=== PATIENT | female | born 1985 | race Caucasian/White ===

== ENCOUNTER 2023-07-30 19:45 | Emergency (ER) | payer OTHER, MEDICAID, SELFPAY ==
[2023-07-30 19:49] VITALS: BP 150/88; PULSE 88; RESP 18; TEMP 36.8; O2SAT 98; BMI 33.7
--- NOTE | 2023-07-30 20:07 | ED_ITS ---
Documented by User: MONTSE Valdovinos 07/30/23 20:59 HPI - General Adult General Chief complaint: Neuro Symptoms/Deficit Stated complaint: ARM SWELLING Time Seen by Provider: 07/30/23 19:58 Source: patient Mode of arrival: walk-in History of Present Illness HPI narrative: patient is a 38-year-old female who presents to the emergency department for the evaluation of multiple complaints. Patient states she is primarily concerned about swelling in her left forearm. She was seen at urgent care for this earlier this morning and started on prednisone, she has taken one dose. She states she had a sleep paralysis stream last night and feels as though she was straining her eyes to try to wake herself up, she states she had some blurriness in the periphery of her vision after this sleep paralysis stream. She states on waking this afternoon the visual changes have resolved. She has not had any headaches, loss of vision, fevers, cough, congestion. She states she took her blood pressure at [facility] earlier today and after the blood pressure cuff was on her left forearm, she has noticed itching, burning and swelling of the left forearm. She does have a history of forearm fracture with surgical repair many years ago. She denies any falls, injuries or overuse of the left forearm. She is not concerned for . Related Data Home Medications Medication Instructions Recorded Confirmed atenolol 100 mg tablet mg 07/30/23 buprenorphine 100 mg/0.5 mL mg subcut 07/30/23 solution,exten.rel.subcutaneous syringe (Sublocade) prednisone 50 mg tablet mg 07/30/23 valacyclovir 500 mg tablet 500 mg PO DAILY 07/30/23 07/30/23 (Valtrex) venlafaxine 150 mg mg PO 07/30/23 capsule,extended release 24 hr Allergies Allergy/AdvReac Type Severity Reaction Status Date / Time No Known Drug Allergies Allergy Verified 07/30/23 19:55 Review of Systems ROS Constitutional Denies: fever or chills Ears, nose, mouth, and throat Denies: throat pain or neck pain Cardiovascular Denies: chest pain Respiratory Denies: shortness of breath or cough Gastrointestinal Denies: nausea or vomiting Musculoskeletal Reports: extremity pain and extremity swelling; Denies: back pain or neck pain Integumentary/Breast Reports: itching; Denies: rash Neurological Denies: headache Hematologic/Lymphatic Denies: easy bruising PFSH PFSH Social History Smoking status: Current every day smoker Exam Narrative Exam Narrative: Gen.: Awake, alert, in no distress Head: Normocephalic, atraumatic ENT: Moist mucous membranes Respiratory: No respiratory distress Extremities: Moves extremities equally, no injuries noted; left forearm with mild soft tissue swelling noted on the volar aspect of the left forearm at the distal aspect of the well-healed surgical incision. No erythema, induration or open wounds. No red streaking. Psych: Normal mood and affect Neuro: No focal neuro deficit, clear speech Skin: Warm, dry, intact Constitutional Vital Signs, click to edit/add: Last Vital Signs Temp 98.2 F 07/30/23 19:49 Pulse 72 07/30/23 21:38 Resp 18 07/30/23 21:38 BP 134/93 H 07/30/23 21:38 Pulse Ox 94 L 07/30/23 21:38 O2 Del Method Room Air 07/30/23 19:49 Course Vital Signs Vital signs: Vital Signs Temperature 98.2 F 07/30/23 19:49 Pulse Rate 88 07/30/23 19:49 Respiratory Rate 18 07/30/23 19:49 Blood Pressure 150/88 H 07/30/23 19:49 Pulse Oximetry 98 07/30/23 19:49 Oxygen Delivery Method Room Air 07/30/23 19:49 Temperature 98.2 F 07/30/23 19:49 Pulse Rate 72 07/30/23 21:38 Respiratory Rate 18 07/30/23 21:38 Blood Pressure 134/93 H 07/30/23 21:38 Pulse Oximetry 94 L 07/30/23 21:38 Oxygen Delivery Method Room Air 07/30/23 19:49 Medical Decision Making MDM Narrative Medical decision making narrative: 2100: lab studies, ultrasound of the left upper extremity and CT of the brain were ordered for the patient. Vital signs are stable at this time. Case is turned over to attending physician for results and disposition. Medical Records Medical records reviewed: Yes I reviewed the patient's medical records Lab Data Lab results reviewed: Yes I reviewed the patient's lab results Labs: Lab Results 07/30/23 Range/Units 20:15 WBC 6.0 (4.0-11.0) 10^3/uL RBC 4.82 (4.20-5.40) 10^6/uL Hgb 13.0 (12.0-16.0) g/dL Hct 39.4 (36.0-48.0) % MCV 81.7 (81.0-99.0) fL MCH 27.0 (26.7-34.0) pg MCHC 33.0 (29.9-35.2) g/dL RDW 13.2 (11.0-15.0) % Plt Count 260 (150-450) 10^3/uL MPV 10.0 (9.5-13.5) fL Neut % (Auto) 88.2 H (43.0-75.0) % Lymph % (Auto) 9.5 L (20.5-60.0) % [place] % (Auto) 1.2 L (1.7-12.0) % Eos % (Auto) 0.3 L (0.9-7.0) % Baso % (Auto) 0.3 (0.2-2.0) % Neut # (Auto) 5.3 (1.4-6.5) 10^3/uL Lymph # (Auto) 0.6 L (1.2-3.8) 10^3/uL [place] # (Auto) 0.1 L (0.3-0.8) 10^3/uL Eos # (Auto) 0.0 (0.0-0.7) 10^3/uL Baso # (Auto) 0.0 (0.0-0.1) 10^3/uL Abs Immat Gran (auto) 0.03 (0.00-0.03) 10^3/uL Imm/Tot Granulo (auto) 0.5 (0.0-0.5) % ESR 34 H (<=20) mm/hr Sodium 141 (136-145) mmol/L Potassium 4.3 (3.5-5.1) mmol/L Chloride 105 (98-107) mmol/L Carbon Dioxide 26.5 (21.0-32.0) mmol/L Anion Gap 13.8 BUN 12.0 (7.0-18.0) mg/dL Creatinine 0.77 (0.55-1.02) mg/dL Est GFR ( Amer) >60 (>=60) Est GFR (Non-Af Amer) >60 (>=60) BUN/Creatinine Ratio 15.6 Glucose 171 H (74-106) mg/dL Calcium 8.5 (8.5-10.1) mg/dL C-Reactive Protein <1.0 (<=1.0) mg/dL Discharge Plan Discharge Chief Complaint: Neuro Symptoms/Deficit Clinical Impression: Localized swelling of left forearm, Visual disturbance Patient Disposition: Home, Self-Care Time of Disposition Decision: 21:56 Condition: Good Mode of Transportation: Private Vehicle Prescriptions / Home Meds: No Action atenolol 100 mg tablet venlafaxine 150 mg capsule,extended release 24hr PO prednisone 50 mg tablet Sublocade 100 mg/0.5 mL solution, extended rel syringe SUBCUT valacyclovir [Valtrex] 500 mg tablet 500 mg PO DAILY Instructions: Blurred Vision (ED), Swollen Joint (ED) Stand Alone Forms: Portal Instructions Referrals: Navjot Stewart DO [Primary Care Provider] - 1 week Documented by User: Chelsea Reyes MD 07/30/23 22:00 HPI - General Adult General Chief complaint: Neuro Symptoms/Deficit Stated complaint: ARM SWELLING Time Seen by Provider: 07/30/23 19:58 Related Data Home Medications Medication Instructions Recorded Confirmed atenolol 100 mg tablet mg 07/30/23 buprenorphine 100 mg/0.5 mL mg subcut 07/30/23 solution,exten.rel.subcutaneous syringe (Sublocade) prednisone 50 mg tablet mg 07/30/23 valacyclovir 500 mg tablet 500 mg PO DAILY 07/30/23 07/30/23 (Valtrex) venlafaxine 150 mg mg PO 07/30/23 capsule,extended release 24 hr Allergies Allergy/AdvReac Type Severity Reaction Status Date / Time No Known Drug Allergies Allergy Verified 07/30/23 19:55 PFSH PFSH Social History Smoking status: Current every day smoker Exam Constitutional Vital Signs, click to edit/add: Last Vital Signs Temp 98.2 F 07/30/23 19:49 Pulse 72 07/30/23 21:38 Resp 18 07/30/23 21:38 BP 134/93 H 07/30/23 21:38 Pulse Ox 94 L 07/30/23 21:38 O2 Del Method Room Air 07/30/23 19:49 Course Vital Signs Vital signs: Vital Signs Temperature 98.2 F 07/30/23 19:49 Pulse Rate 88 07/30/23 19:49 Respiratory Rate 18 07/30/23 19:49 Blood Pressure 150/88 H 07/30/23 19:49 Pulse Oximetry 98 07/30/23 19:49 Oxygen Delivery Method Room Air 07/30/23 19:49 Temperature 98.2 F 07/30/23 19:49 Pulse Rate 72 07/30/23 21:38 Respiratory Rate 18 07/30/23 21:38 Blood Pressure 134/93 H 07/30/23 21:38 Pulse Oximetry 94 L 07/30/23 21:38 Oxygen Delivery Method Room Air 07/30/23 19:49 Medical Decision Making MDM Narrative Medical decision making narrative: 2100: lab studies, ultrasound of the left upper extremity and CT of the brain were ordered for the patient. Vital signs are stable at this time. Case is turned over to attending physician for results and disposition. This patient was seen and evaluated in conjunction with the physician recreational assistant. She presents for evaluation of left forearm swelling and visual disturbance that occurred after having a dream. Her neuro exam is normal. She does have some mild left forearm swelling. She states that 20 years ago she had surgery on the left forearm after having a bad fracture. She also required a skin graft. Her neurovascular exam is normal. Ultrasound of the extremity was negative. CT scan of the brain was also normal. Routine labs are reviewed. She has an elevated glucose at 171 and a mild elevation of her ESR at 38. Remainder of her labs are normal. She is not having any pain at this time. I offered her a wrist splint but she states that she has a splint at home and wishes to be discharged at this time since she can go to work. Medical Records Medical records narrative: The [address] [address] [address] Scan Report Signed Patient: KALEB MCCAULEY MR#: [id number] : 1985 Acct:[id number] Age/Sex: 38 / F ADM Date: 07/30/23 Loc: ER Attending Dr: Ordering Physician: Jason Smith Date of Service: 07/30/23 Procedure(s): CT head/brain wo con Accession Number(s): [id number] cc: Navjot Stewart D.O.~ The [place] [id number] Patient Name: KALEB MCCAULEY MRN: [id number] date: 1985 Sex: F Assigned Patient Location: ER Current Patient Location: ER Accession/Order Number: [id number] Exam Date: 07/30/2023 21:08 Report Date: 07/30/2023 21:27 At the request of: JASON SMITH Procedure: CT head/brain wo con EXAMINATION: CT head/brain wo con HISTORY: Visual change - TECHNIQUE: CT head without contrast. All CT scans at this facility use dose modulation, iterative reconstruction, and/or weight based dosing when appropriate to reduce radiation dose to as low as reasonably achievable. COMPARISON: None. RESULT: Post-operative change: None. Acute change: No evidence of an acute intracranial process. Hemorrhage: No evidence of acute intracranial hemorrhage. Mass Lesion / Mass Effect: No evidence of an intracranial mass or extraaxial fluid collection. No significant mass effect. Chronic change: None apparent. Parenchyma: No significant parenchymal volume loss. Ventricles: Normal caliber and morphology. Other: The calvarium, skull base, imaged paranasal sinuses, mastoids, orbits and extracranial soft tissues are unremarkable. CT/CT head/brain wo con IMPRESSION: 1. No acute intracranial abnormality; no acute infarct, intracranial hemorrhage or extra-[place] [address] Ultrasound Report Signed Patient: KALEB MCCAULEY MR#: [id number] : 1985 Acct:[id number] Age/Sex: 38 / F ADM Date: 07/30/23 Loc: ER Attending Dr: Ordering Physician: Jason Smith Date of Service: 07/30/23 Procedure(s): US venous doppler UE LT Accession Number(s): [id number] cc: Navjot Stewart D.O.; Jason Smith~ The [address] [address] Patient Name: KALEB MCCAULEY MRN: [id number] date: 1985 Sex: F Assigned Patient Location: ER Current Patient Location: ER Accession/Order Number: [id number] Exam Date: 07/30/2023 20:28 Report Date: 07/30/2023 21:20 At the request of: JASON SMITH Procedure: US venous doppler UE LT EXAM: Upper Extremity DVT Ultrasound TECHNIQUE: Color doppler and menezes-scale imaging of the left upper extremities was performed. COMPARISON: None. FINDINGS: Normal flow without evidence of intraluminal echogenic thrombus in the left internal jugular vein, subclavian vein, axillary vein, and brachial vein. Normal compressibility where anatomically accessible. Normal flow and compressibility of the radial, ulnar, cephalic veins. Other: In the region of interest corresponding to the distal forearm there are no discrete sonographic abnormalities with exception of mild subcutaneous edema. US/US venous doppler UE LT IMPRESSION: No DVT in the left extremity to the level of the wrist. Subcutaneous edema seen at the distal forearm/wrist in the area of concern. Electronically authenticated by: MARCIAL SALES Date: 07/30/2023 21:20 Lab Data Labs: Lab Results 07/30/23 Range/Units 20:15 WBC 6.0 (4.0-11.0) 10^3/uL RBC 4.82 (4.20-5.40) 10^6/uL Hgb 13.0 (12.0-16.0) g/dL Hct 39.4 (36.0-48.0) % MCV 81.7 (81.0-99.0) fL MCH 27.0 (26.7-34.0) pg MCHC 33.0 (29.9-35.2) g/dL RDW 13.2 (11.0-15.0) % Plt Count 260 (150-450) 10^3/uL MPV 10.0 (9.5-13.5) fL Neut % (Auto) 88.2 H (43.0-75.0) % Lymph % (Auto) 9.5 L (20.5-60.0) % [place] % (Auto) 1.2 L (1.7-12.0) % Eos % (Auto) 0.3 L (0.9-7.0) % Baso % (Auto) 0.3 (0.2-2.0) % Neut # (Auto) 5.3 (1.4-6.5) 10^3/uL Lymph # (Auto) 0.6 L (1.2-3.8) 10^3/uL [place] # (Auto) 0.1 L (0.3-0.8) 10^3/uL Eos # (Auto) 0.0 (0.0-0.7) 10^3/uL Baso # (Auto) 0.0 (0.0-0.1) 10^3/uL Abs Immat Gran (auto) 0.03 (0.00-0.03) 10^3/uL Imm/Tot Granulo (auto) 0.5 (0.0-0.5) % ESR 34 H (<=20) mm/hr Sodium 141 (136-145) mmol/L Potassium 4.3 (3.5-5.1) mmol/L Chloride 105 (98-107) mmol/L Carbon Dioxide 26.5 (21.0-32.0) mmol/L Anion Gap 13.8 BUN 12.0 (7.0-18.0) mg/dL Creatinine 0.77 (0.55-1.02) mg/dL Est GFR ( Amer) >60 (>=60) Est GFR (Non-Af Amer) >60 (>=60) BUN/Creatinine Ratio 15.6 Glucose 171 H (74-106) mg/dL Calcium 8.5 (8.5-10.1) mg/dL C-Reactive Protein <1.0 (<=1.0) mg/dL Discharge Plan Discharge Chief Complaint: Neuro Symptoms/Deficit Clinical Impression: Localized swelling of left forearm, Visual disturbance Patient Disposition: Home, Self-Care Time of Disposition Decision: 21:56 Condition: Good Mode of Transportation: Private Vehicle Prescriptions / Home Meds: No Action atenolol 100 mg tablet venlafaxine 150 mg capsule,extended release 24hr PO prednisone 50 mg tablet Sublocade 100 mg/0.5 mL solution, extended rel syringe SUBCUT valacyclovir [Valtrex] 500 mg tablet 500 mg PO DAILY Instructions: Blurred Vision (ED), Swollen Joint (ED) Stand Alone Forms: Portal Instructions Referrals: Navjot Stewart DO [Primary Care Provider] - 1 week
[2023-07-30 20:23] LABS: Basophils Percent Auto 0.3 % (0.2-2.0); Eosinophils Percent Auto 0.3 % (0.9-7.0); Hematocrit 39.4 % (36.0-48.0); Immature Granulocytes Abs Auto 0.03 10^3/uL (0.00-0.03); Immature Granulocytes Pct Auto 0.5 % (0.0-0.5); Lymphocytes Absolute Auto 0.6 10^3/uL (1.2-3.8); Lymphocytes Percent Auto 9.5 % (20.5-60.0); Mean Corpuscular Volume 81.7 fL (81.0-99.0); Monocytes Absolute Auto 0.1 10^3/uL (0.3-0.8); Monocytes Percent Auto 1.2 % (1.7-12.0); Neutrophils Absolute Auto 5.3 10^3/uL (1.4-6.5); Neutrophils Percent Auto 88.2 % (43.0-75.0); Platelet Count 260 10^3/uL (150-450); Red Blood Count 4.82 10^6/uL (4.20-5.40); Red Cell Distribution Width 13.2 % (11.0-15.0)
[2023-07-30 20:30] LABS: Erythrocyte Sedimentation Rate 34 mm/hr (<=20)
[2023-07-30 20:33] LABS: Anion Gap 13.8; BUN Creatinine Ratio 15.6; C Reactive Protein <1.0 mg/dL (<=1.0); Calcium 8.5 mg/dL (8.5-10.1); Carbon Dioxide 26.5 mmol/L (21.0-32.0); Chloride 105 mmol/L (98-107); Estimated GFR (African America >60 (>=60); Estimated GFR (Non-African Ame >60 (>=60); Glucose 171 mg/dL (74-106); Potassium 4.3 mmol/L (3.5-5.1); Sodium 141 mmol/L (136-145)
[2023-07-30 21:38] VITALS: BP 134/93; PULSE 72; RESP 18; O2SAT 94
== END 2023-07-30 22:04 | disposition home or self-care (01) ==
PROVIDERS: Physician Assistant; Emergency Provider Emergency Medicine; PCP Internal Medicine
DX: R22.32 Localized swelling, mass and lump, left upper limb (principal); H53.9 Unspecified visual disturbance; Z87.81 Personal history of (healed) traumatic fracture; Z79.899 Other long term (current) drug therapy; F17.210 Nicotine dependence, cigarettes, uncomplicated
CPT/HCPCS: 36415; 70450; 80048; 85025; 85652; 86140; 93971; 99285

== ENCOUNTER 2024-04-20 08:54 | Outpatient (OUT) | payer OTHER, SELFPAY ==
--- NOTE | 2024-04-20 08:55 | US_ITS ---
[address] [address] Patient Name: KALEB MCCAULEY MRN: [id number] date: 1985 Sex: F Assigned Patient Location: Current Patient Location: Accession/Order Number: [id number] Exam Date: 04/20/2024 09:00 Report Date: 04/21/2024 10:57 At the request of: GERMAN MONTEMAYOR Procedure: US pelvis transvaginal EXAMINATION: US pelvis transvaginal HISTORY: Menorrhagia COMPARISON: No relevant comparison available. TECHNIQUE: Transabdominal and/or transvaginal sonographic examination was performed as indicated by examination type. FINDINGS: UTERUS: Normal size and appearance. Uterus size: 8.9 x 5.6 x 4.0 cm ENDOMETRIUM: Normal homogeneous appearance. Endometrial thickness: 12 mm RIGHT OVARY: Not seen. No suspicious adnexal findings. LEFT OVARY: Contains a 3.5 cm benign-appearing cyst. Duplex Doppler demonstrates normal waveform and flow; resistive index 0.5. Ovary size: 4.1 x 3.9 x 2.8 mm CUL-DE-SAC: Unremarkable. No significant free fluid. BLADDER: Unremarkable. OTHER: None. US/US pelvis transvaginal IMPRESSION: 1. No abnormal or suspicious findings to account for patient's symptoms. 2. Right ovary was not seen. Electronically authenticated by: JOSE AGOSTO Date: 04/21/2024 10:57
[2024-04-20 09:33] LABS: Basophils Percent Auto 0.6 % (0.2-2.0); Eosinophils Absolute Auto 0.5 10^3/uL (0.0-0.7); Eosinophils Percent Auto 7.8 % (0.9-7.0); Hematocrit 33.4 % (36.0-48.0); Hemoglobin 10.7 g/dL (12.0-16.0); Immature Granulocytes Abs Auto 0.03 10^3/uL (0.00-0.03); Immature Granulocytes Pct Auto 0.5 % (0.0-0.5); Lymphocytes Absolute Auto 1.5 10^3/uL (1.2-3.8); Lymphocytes Percent Auto 23.2 % (20.5-60.0); Mean Corpuscular Hemoglobin 25.3 pg (26.7-34.0); Mean Platelet Volume 9.5 fL (9.5-13.5); Monocytes Absolute Auto 0.5 10^3/uL (0.3-0.8); Monocytes Percent Auto 7.5 % (1.7-12.0); Neutrophils Absolute Auto 3.9 10^3/uL (1.4-6.5); Neutrophils Percent Auto 60.4 % (43.0-75.0); Platelet Count 248 10^3/uL (150-450); Red Blood Count 4.23 10^6/uL (4.20-5.40); Red Cell Distribution Width 13.2 % (11.0-15.0); White Blood Count 6.4 10^3/uL (4.0-11.0)
[2024-04-20 09:44] LABS: Estimated Average Glucose 117 mg/dL; Glycohemoglobin A1C 5.7 % (4.5-6.2)
[2024-04-20 09:55] LABS: INR 0.95; Partial Thromboplastin Time 28.5 sec (22.3-36.2); Prothrombin Time 10.1 sec (9.0-11.6)
[2024-04-20 10:24] LABS: HCG Quantitative <1 mIU/mL; Thyroid Stimulating Hormone 1.302 uIU/mL (0.358-3.740)
[2024-04-20 11:37] LABS: Free T4 0.91 ng/dL (0.76-1.46)
== END 2024-04-20 08:55 | disposition home or self-care (01) ==
LOC: US 08:54
PROVIDERS: PCP Internal Medicine; Visit Provider Obstetrics & Gynecology
DX: N92.0 Excessive and frequent menstruation with regular cycle (principal)
CPT/HCPCS: 36415; 76830; 83036; 84439; 84443; 84702; 85025; 85610; 85730

== ENCOUNTER 2024-06-09 12:28 | Outpatient (REF) | payer OTHER, SELFPAY ==
--- OUTSIDE RECORDS SUMMARY | 2024-06-09 20:35 | XMS_ITS | CCD ---
Author Organization [facility] Care Team Providers Care Photovoltaic Panel Installer Name Role Phone ARACELI HALL Unavailable Unavailable HAY, MAHESH Unavailable Unavailable HAY, MAHESH Unavailable Unavailable HAY, MAHESH Unavailable Unavailable LAURA, BERTHA L Unavailable Unavailable LAURA, BERTHA L Unavailable Unavailable ALBINA, GERMAN Unavailable Unavailable ALBINA, GERMAN Unavailable Unavailable ALBINA, GERMAN Unavailable Unavailable LAURA, BERTHA L Unavailable Unavailable LAURA, BERTHA L Unavailable Unavailable LAURA, BERTHA L Unavailable Unavailable ALBINA, GERMAN Attending Unavailable Problems Problem Classification Problem Date Documented Date Episodic/Chronic Fever of unknown origin (1 source) Fever, unspecified; Translations: [FEVER UNSPECIFIED] Onset: 04-21-2018 Episodic Immunizations and screening for infectious disease (1 source) Encounter for screening for human papillomavirus (HPV); Translations: [ENC SCREENING HUMAN PAPILLOMAVIRUS] Onset: 05-07-2018 Episodic Other female genital disorders (1 source) Other specified noninflammatory disorders of vagina; Translations: [OTH SPEC NONINFLAMMATORY D/O VAGINA] Onset: 05-07-2018 Episodic Other upper respiratory infections (4 sources) Acute pharyngitis, unspecified; Translations: [ACUTE PHARYNGITIS UNSPECIFIED] Onset: 04-19-2018 Episodic Substance-related disorders (1 source) Nicotine dependence, cigarettes, uncomplicated; Translations: [NICOTINE DEPEND CIGARETTES UNCOMP] Onset: 04-21-2018 Chronic Unclassified (5 sources) Encounter for screening for malignant neoplasm of cervix; Translations: [ENC SCREENING MALIG NEOPLASM CERV] Onset: 05-04-2018 Episodic Viral infection (4 sources) Herpesviral infection of other urogenital tract; Translations: [HERPESVIRAL INF OTH UROGENITL TRACT] Onset: 05-04-2018 Chronic Results Test Name Value Interpretation Reference Range Facility PAP ACOG PANEL 2: 30 to 65on 05-14-2018 Age Gdln ACOG Testing 30-65 Normal [facility] Comment on above: Performed By: #### [id number] ####[facility] [address] [place] [address] COMMENT Comment Normal [facility] Comment on above: Result Comment: Z01.419Z11.51Performed a t: WB Performed By: #### [id number] ####[facility] [address] [place] [address] Lexie DIAGNOSIS: Comment Normal [facility] Comment on above: Result Comment: NEGATIVE FOR INTRAEPITHE LIAL LESION AND MALIGNANCY.PREDOMINANCE OF COCCOBACILLI CONSISTENT WITH SHIFT IN VAGINAL SHERMAN ISPRESENT.THIS SPECIMEN WAS RESCREENED PART OF OUR SPRING WINDER PROGRAM.Performed at: WB Performed By: #### [id number] ####[facility] [address] [place] [address] HPV Aptima Negative Normal Negative [facility] Comment on above: Result Comment: This test was developed and its performance characteristicsdetermined by [employer]. It has not been cleared or approvedby the Food and Drug Administration.This test detects fourteen high-risk HPV types (16/18/31/33/35/39/45/51/52/56/58/59/66/68) without differentiation.Performed at: =G Performed By: #### [id number] ####[facility] [address] [place] [address] Lexie Methodology: Comment Normal [facility] Comment on above: Result Comment: This liquid based SurePa th(R) pap test was screened with theassistance of an image guided system.Performed at: WB Performed By: #### [id number] ####[facility] [address] [place], [place] [address]en Note: Comment Normal [facility] Comment on above: Result Comment: The Pap smear is a scree shanti test designed to aid in the detection ofpremalignant and malignant conditions of the uterine cervix. It is not adiagnostic procedure and should not be used as the sole means of detectingcervical cancer. Both false-positive and false-negative reports do occur. .Performed at: WB Performed By: #### [id number] ####[facility] [address] [place] Performed by: Comment Normal [facility] Comment on above: Result Comment: Lorie Song, Cytotechn ologist (ASC)Performed at: WB Performed By: #### [id number] ####[facility] [address] QC reviewed by: Comment Normal [facility] Comment on above: Result Comment: Orin Slade, Search Engine Optimization Manager y Arboreal Scientist (ASCP)Performed at: WB Performed By: #### [id number] ####[facility] [address] [place] [address] Specimen adequacy: Comment Normal [facility] Comment on above: Result Comment: Satisfactory for evaluat ion. Endocervical and/or squamous metaplasticcells (endocervical component) are present.Performed at: WB Performed By: #### [id number] ####[facility] [address] [place] [address] Lexie . . Normal [facility] Comment on above: Result Comment: Performed at: WB Performed By: #### [id number] ####[facility] [address] [place] [address] Lexie CHLAMYDIA/GONOCOCCUS LEONIE W/C ONF. (SWAB/Uon 05-07-2018 Chlamydia Trach LEONIE Negative Normal Negative [facility] Comment on above: Performed By: #### CT/NGNA ####[facility] [address] [place] [address] N. Gonorrhoeae LEONIE Negative Normal Negative [facility] Comment on above: Performed By: #### CT/NGNA ####[facility] [address] [place] [address] HERPES SIMPLEX VIRUS (HSV) C ULTUREon 05-07-2018 HSV Culture/Type Comment Abnormal [facility] Comment on above: Result Comment: Positive for Herpes simp vanessa virus type-2. Typing was confirmed bymonoclonal antibody microscopic immunofluorescence. Performed By: #### H SVCUL ####[facility] [address] [place] [address]Mae Owen VAGINITIS/VAGINOSIS DNA PROB Thomas 05-06-2018 Josefa species Negative Normal Negative [facility] Comment on above: Performed By: #### VAGINT ####[facility] [address] [place] Gardnerella vaginalis Positive Abnormal Negative [facility] Comment on above: Performed By: #### VAGINT ####[facility] [address] [place] Trichomonas vaginalis Negative Normal Negative [facility] Comment on above: Performed By: #### VAGINT ####[facility] [address] [place] Encounters Encounter Date Encounter Type Care Provider Facility Start: 05-04-2024 End: 05-04-2024 ambulatory GERMAN MONTEMAYOR Not Available Start: 05-04-2018 End: 05-04-2018 Patient encounter BERTHA Mckeon LAURA Facility:[facility] Start: 04-19-2018 End: 04-19-2018 Patient encounter ARACELI HALL Facility:[facility] Payers Date Payer Category Payer Private Health Insurance [id number] 1985 Unknown [id number] 1959 Self-pay [id number] 1959 Unknown [id number] Summary Purpose Family History No Family History Records FoundNo Family History Records Found Advance Directives No Advanced Directives Records FoundNo Advanced Directives Records Found Additional Source Comments INFORMATION SOURCE (unrecogn ized section and content) DATE CREATED AUTHOR 05/14/2018 [facility] robert DATE CREATED AUTHOR AUTHOR'S CHLOEIZ ATPATIENCE 05/05/2024 [facility] EPIC FOR RECORDS PERTAINING TO PATIENTS WHO ARE OR HAVE BEEN ENROLLED IN A CHEMICAL DEPENDENCY/SUBSTANCEABUSE PROGRAM, SOME INFORMATION MAY BE OMITTED. This clinical summary was aggregated from multiple sources. Caution should be exercised in using it in the provision of clinical care. This summary normalizes information from multiple sources, and as a consequence, information in this document may materially change the coding, format and clinical context of patient data. In addition, data may be omitted in some cases. CLINICAL DECISIONS SHOULD BE BASED ON THE PRIMARY CLINICAL RECORDS. [employer] [facility]. provides no warranty or guarantee of the accuracy or completeness of information in this document.
== END 2024-06-09 12:29 | disposition home or self-care (01) ==
LOC: LAB 12:28
PROVIDERS: PCP Internal Medicine; Visit Provider Obstetrics & Gynecology
DX: N92.0 Excessive and frequent menstruation with regular cycle (principal)
CPT/HCPCS: 88305

== ENCOUNTER 2024-06-16 11:17 | Outpatient (OUT) | payer OTHER, SELFPAY ==
--- NOTE | 2024-06-16 11:22 | ECG_ITS ---
The [facility] Test Date: 2024-06-16 Pat Name: KALEB MCCAULEY Department: Room: - Gender: Female Manager Diversity: : 1985 Requested By: GERMAN MONTEMAYOR Order Number: [id number] Reading MD: ARACELI HALL Measurements Intervals [place] Rate: 50 P: -6 AK: 182 QRS: 39 QRSD: 94 T: 33 QT: 404 QTc: 369 Interpretive Statements SINUS BRADYCARDIA WITH SINUS ARRHYTHMIA No previous ECG available for comparison Electronically Signed On 06-16-2024 17:52:04 EDT by ARACELI HALL
--- OUTSIDE RECORDS SUMMARY | 2024-06-16 11:25 | XMS_ITS | CCD ---
Author Organization [facility] Care Team Providers Care General Intern Name Role Phone NAVJOT HALL Unavailable Unavailable HAY, MAHESH Unavailable Unavailable HAY, MAHESH Unavailable Unavailable HAY, MAHESH Unavailable Unavailable LAURA, BERTHA L Unavailable Unavailable LAURA, BERTHA L Unavailable Unavailable ENEDINA, GERMAN Unavailable Unavailable ENEDINA, GERMAN Unavailable Unavailable ENEDINA, GERMAN Unavailable Unavailable LAURA, BERTHA L Unavailable Unavailable LAURA, BERTHA L Unavailable Unavailable LAURA, BERTHA L Unavailable Unavailable Enedina, DO German Attending Provider ENEDINA, GERMAN Attending Unavailable ENEDINA, GERMAN Attending Unavailable Enedina, German Admitting Unavailable Eneidna, German Attending Unavailable Problems Problem Classification Problem Date [...] Test Name Value Interpretation Reference Range Facility Activated partial thrombopla stin time (aPTT) in platelet poor plasma by coagulation aon 04-20-2024 aPTT Coag (PPP) [Time] 28.5 s 22.3-36.2 [facility] Basophils Auto (Bld) [#/Vol] on 04-20-2024 Basophils (Bld) [#/Vol] 0.0 10 3/uL 0.0-0.1 [facility] Basophils/100 WBC Auto (Bld) on 04-20-2024 Basophils/100 WBC (Bld) 0.6 % 0.2-2.0 [facility] Eosinophils/100 WBC Auto (Bl d)on 04-20-2024 Eosinophils/100 WBC (Bld) 7.8 % High 0.9-7.0 [facility] Erythrocyte distribution wid th Auto (RBC) [Ratio]on 04-20-2024 Erythrocyte distribution width (RBC) [Ratio] 13.2 % 11.0-15.0 [facility] Glucose mean value [Mass/vol ume] in Blood Estimated from glycated hemoglobinon 04-20-2024 Average glucose Estimated from glycated hemoglobin (Bld) [Mass/Vol] 117 mg/dL [facility] Hematocrit Auto (Bld) [Volum e fraction]on 04-20-2024 Hematocrit (Bld) [Volume fraction] 33.4 % Low 36.0-48.0 [facility] Hemoglobin [Mass/volume] in Bloodon 04-20-2024 Hemoglobin (Bld) [Mass/Vol] 10.7 g/dL Low 12.0-16.0 [facility] INR in Platelet poor plasma by Coagulation assayon 04-20-2024 INR Coag (PPP) [Relative time] 0.95 {INR} [facility] Comment on above: DESIRED INR:2.0-3.0 CONDITIONS NOT LISTED BELOW2.5-3.5 FOR PROSTHETIC HEART VALVE REPLACEMENT2.5-3.5 RECURRENT THROMBOSIS Laboratory - Chemistry and C hemistry - challengeon 04-20-2024 Free T4 [Mass/Vol] 0.91 ng/dL 0.76-1.46 [facility] TSH Qn 1.302 m[IU]/L 0.358-3.740 [facility] Laboratory - Hematology and Cell countson 04-20-2024 HbA1c (Bld) [Mass fraction] 5.7 % 4.5-6.2 [facility] Comment on above: ADA RECOMMENDED LIMI T 4.0 - 6.0ADA THERAPEUTIC TARGET < 7.0ACTION SUGGESTED> 7.0 Immature granulocytes/100 WBC (Bld) 0.5 % 0.0-0.5 [facility] Leukocytes [#/volume] correc abdirizak for nucleated erythrocytes in Blood by Automated counon 04-20-2024 WBC corrected for nucl RBC Auto (Bld) [#/Vol] 6.4 10 3/uL 4.0-11.0 [facility] Lymphocytes Auto (Bld) [#/Vo l]on 04-20-2024 Lymphocytes (Bld) [#/Vol] 1.5 10 3/uL 1.2-3.8 [facility] Lymphocytes/100 WBC Auto (Bl d)on 04-20-2024 Lymphocytes/100 WBC (Bld) 23.2 % 20.5-60.0 [facility] MCH Auto (RBC) [Entitic mass ]on 04-20-2024 MCH (RBC) [Entitic mass] 25.3 pg Low 26.7-34.0 [facility] MCHC Auto (RBC) [Mass/Vol]on 04-20-2024 MCHC (RBC) [Mass/Vol] 32.0 g/dL 29.9-35.2 [facility] MCV Auto (RBC) [Entitic vol] on 04-20-2024 MCV (RBC) [Entitic vol] 79.0 fL Low 81.0-99.0 [facility] Monocytes Auto (Bld) [#/Vol] on 04-20-2024 Monocytes (Bld) [#/Vol] 0.5 10 3/uL 0.3-0.8 [facility] Monocytes/100 WBC Auto (Bld) on 04-20-2024 Monocytes/100 WBC (Bld) 7.5 % 1.7-12.0 [facility] Neutrophils Auto (Bld) [#/Vo l]on 04-20-2024 Neutrophils (Bld) [#/Vol] 3.9 10 3/uL 1.4-6.5 [facility] Neutrophils/100 WBC Auto (Bl d)on 04-20-2024 Neutrophils/100 WBC (Bld) 60.4 % 43.0-75.0 [facility] No Panel Informationon 04-20 Eosinophils # (Auto) 0.5 10 3/uL 0.0-0.7 [facility] Human Chorionic Gonadotropin, Quant <1 mIU/mL [facility] Comment on above: 5-50 0.2-1 OOTX58-62 0 1-2 WRUYE619-8,000 2-3 YUVTP225-99,000 3-4 WEEKS1,000-50,000 4-5 WEEKS10,000-100,000 5-6 WEEKS15,000-200,000 6-8 WEEKS10,000-100,000 2-3 MONTHS Immature Granulocyte # (Auto) 0.03 10 3/uL 0.00-0.03 [facility] Platelet mean volume Auto (B ld) [Entitic vol]on 04-20-2024 Platelet mean volume (Bld) [Entitic vol] 9.5 fL 9.5-13.5 [facility] Platelets Auto (Bld) [#/Vol] on 04-20-2024 Platelets (Bld) [#/Vol] 248 10 3/uL 150-450 [facility] Prothrombin time (PT)on 04-02 PT Coag (PPP) [Time] 10.1 s 9.0-11.6 [facility] RBC Auto (Bld) [#/Vol]on RBC (Bld) [#/Vol] 4.23 10 6/uL 4.20-5.40 [facility] PAP ACOG PANEL 2: 30 to 65on 05-14-2018 Age Gdln ACOG Testing 30-65 Normal [facility] Comment on above: Performed By: #### [id number] ####[facility] [address] [place], [place] [address]Ntyyug Lexie COMMENT Comment Normal [facility] Comment on above: Result Comment: Z01. 419Z11.51Performed at: WB Performed By: #### 4 [id number] ####[facility] [address] [place] [address] Lexie DIAGNOSIS: Comment Normal [facility] Comment on above: Result Comment: NEGA TIVE FOR INTRAEPITHELIAL LESION AND MALIGNANCY.PREDOMINANCE OF COCCOBACILLI CONSISTENT WITH SHIFT IN VAGINAL SHERMAN ISPRESENT.THIS SPECIMEN WAS RESCREENED PART OF OUR BINDER CHAINSTITCH PROGRAM.Performed at: WB Performed By: #### [id number] ####[facility] [address] [place] [address] Lexie HPV Aptima Negative Normal Negative [facility] Comment on above: Result Comment: This test was developed and its performance characteristicsdetermined by [employer]. It has not been cleared or approvedby the Food and Drug Administration.This test detects fourteen high-risk HPV types (16/18/31/33/35/39/45/51/52/56/58/59/66/68) without differentiation.Performed at: =G Performed By: #### [id number] ####[address] Methodology: Comment Normal [facility] Comment on above: Result Comment: This liquid based SurePath(R) pap test was screened with theassistance of an image guided system.Performed at: WB Performed By: #### 4 [id number] ####[address] Lexie Note: Comment Normal [facility] Comment on above: Result Comment: The Pap smear is a screening test designed to aid in the detection ofpremalignant and malignant conditions of the uterine cervix. It is not adiagnostic procedure and should not be used as the sole means of detectingcervical cancer. Both false-positive and false-negative reports do occur. .Performed at: WB Performed By: #### [id number] ####[facility] [address] [place] [address] Lexie Performed by: Comment Normal [facility] Comment on above: Result Comment: Susan Song, Lapping Machine Operator (ASCP)Performed at: WB Performed By: #### [id number] ####[facility] [address] QC reviewed by: Comment Normal [facility] Comment on above: Result Comment: Deirdre Slade, Supervisory Lapping Machine Operator (ASCP)Performed at: WB Performed By: #### 4 [id number] ####[facility] [address] [place] [address] Specimen adequacy: Comment Normal [facility] Comment on above: Result Comment: Sati sfactory for evaluation. Endocervical and/or squamous metaplasticcells (endocervical component) are present.Performed at: WB Performed By: #### 4 [id number] ####[facility] [address] [place] [address] . . Normal [facility] Comment on above: Result Comment: Perf ormed at: WB Performed By: #### 4 [id number] ####[facility] [address] [place] [address] CHLAMYDIA/GONOCOCCUS LEONIE W/C ONF. (SWAB/Uon 05-07-2018 Chlamydia Trach LEONIE Negative Normal Negative [facility] Comment on above: Performed By: #### C T/NGNA ####[facility] [address] [place] [address] N. Gonorrhoeae LEONIE Negative Normal Negative [facility] Comment on above: Performed By: #### C T/NGNA ####[facility] [address] [place] [address] HERPES SIMPLEX VIRUS (HSV) C ULTUREon 05-07-2018 HSV Culture/Type Comment Abnormal [facility] Comment on above: Result Comment: Posi tive for Herpes simplex virus type-2. Typing was confirmed bymonoclonal antibody microscopic immunofluorescence. Performed By: #### H SVCUL ####[facility] [address] [place] [address] VAGINITIS/VAGINOSIS DNA PROB Thomas 05-06-2018 Josefa species Negative Normal Negative [facility] Comment on above: Performed By: #### V AGINT ####[facility] [address] [place], [place] [address]Qcakmb Lexie Gardnerella vaginalis Positive Abnormal Negative [facility] Comment on above: Performed By: #### V AGINT ####[facility] [address] [place], [place] [address]Uoqjnf Lexie Trichomonas vaginalis Negative Normal Negative [facility] Comment on above: Performed By: #### V AGINT ####[facility] [address] [place], [place] [address]Pnazez Lexie Encounters Encounter Date Encounter Type Care Provider Facility Start: 06-09-2024 End: 06-09-2024 ambulatory German Enedina [facility] Work Phone: Start: 06-09-2024 End: 06-09-2024 Departed Referred DO German Enedina Work Phone: [facility] Start: 06-09-2024 End: 06-09-2024 ambulatory GERMAN ENEDINA Not Available Start: 05-04-2024 End: 05-04-2024 ambulatory GERMAN ENEDINA Not Available Start: 04-20-2024 Non-patient / Non-visit DO Cor ey Enedina Work Phone: [facility] Work Phone: Start: 05-04-2018 End: 05-04-2018 Patient encounter BERTHA SANCHEZ Facility:[facility] Start: 04-19-2018 End: 04-19-2018 Patient encounter NAVJOT HALL Facility:[facility] Plan of Treatment Date Care Activity Detail Author Start: 06-09-2024 [facility] Payers Date Payer Category Payer Self-pay 2019 Private Health Insurance [id number] 1985 Unknown [id number] 1985 Unknown [id number] 1959 Self-pay [id number] 1959 Unknown [id number] Social History Date Type Detail [facility] Work Phone: Start: 1985 Sex Assigned At Female F [facility] Evaluation note Note Date & Type Note Facility Evaluation note No assessment information availa ble [facility] Work Phone: Summary Purpose Family History No Family History Records Found Relationship Condition Age at Onset Recorded Date/T marci father Malignant neoplasm Unknown History of malignant neoplasm of prostate Unknown Diabetes mellitus Unknown grandparent Unknown mother Diabetes mellitus Unknown Malignant neoplasm of breast Unknown Malignant neoplasm Unknown Hypertension Unknown Advance Directives No Advanced Directives Records FoundNo Advanced Directives Records FoundNo Advanced Directives Records Found Additional Source Comments INFORMATION SOURCE (unrecogn ized section and content) DATE CREATED AUTHOR 05/14/2018 [facility] DATE CREATED AUTHOR AUTHOR'S ORGANIZ ATION 06/11/2024 [facility] EPIC DATE CREATED AUTHOR AUTHOR'S ORGANIZ ATION 06/13/2024 [facility] Care Teams (unrecognized sec tion and content) Team Status: Active Member Role Status Dates Navjot Hall DO Primary Care Provider Active Start: April 20, 2024 German Mcconnell DO Attending Provider Active Start : April 20, 2024 Team Status: Inactive Member Role Status Dates German Mcconnell DO Attending Provider Active Start : June 09, 2024 End: June 09, 2024 Goals (unrecognized section and content) Goals may be documented in a n alternate section FOR RECORDS PERTAINING TO PATIENTS WHO ARE [...] BE BASED ON THE PRIMARY CLINICAL RECORDS. [facility] [employer] [facility]. provides no warranty or guarantee of the accuracy or completeness of information in this document.
--- NOTE | 2024-06-16 11:39 | XR_ITS ---
The [address] [address] Patient Name: KALEB MCCAULEY MRN: [id number] date: 1985 Sex: F Assigned Patient Location: [facility] Current Patient Location: Accession/Order Number: [id number] Exam Date: 06/16/2024 11:57 Report Date: 06/17/2024 08:19 At the request of: RACHANA PALMA Procedure: XR chest 2V PROCEDURE: XR chest 2V DATE: 06/16/2024 10:57 AM CDT COMPARISONS: None. CLINICAL INDICATION: 39 years Female E-CIGARETTE USE FINDINGS: The cardiomediastinal silhouette and pulmonary vasculature are within normal limits. The lungs are clear. There is no evidence of pleural effusion or pneumothorax. XR/XR chest 2V IMPRESSION: Chest radiograph is within normal limits. Electronically authenticated by: JALIL NEIL Date: 06/17/2024 08:19
== END 2024-06-16 11:18 | disposition home or self-care (01) ==
PROVIDERS: PCP Internal Medicine; Visit Provider Obstetrics & Gynecology
DX: Z01.810 Encounter for preprocedural cardiovascular examination (principal); N92.0 Excessive and frequent menstruation with regular cycle; N93.9 Abnormal uterine and vaginal bleeding, unspecified; R10.2 Pelvic and perineal pain
CPT/HCPCS: 71046; 93005

== ENCOUNTER 2024-06-24 06:44 | Day surgery (SDC) | payer OTHER, SELFPAY ==
[2024-06-16 11:43] VITALS: BP 144/89; PULSE 61; TEMP 36.4; O2SAT 100; BMI 33.7
[2024-06-24] VITALS (8 sets, daily range): BP systolic 136–164; BP diastolic 66–97; PULSE 46–65; TEMP 36.3–36.6; O2SAT 97–100; BMI 33.1
--- OUTSIDE RECORDS SUMMARY | 2024-06-24 06:47 | XMS_ITS | CCD ---
Author Organization [facility] Care Team Providers Care Secretary Of State Name Role Phone NAVJOT HALL Unavailable Unavailable [...] Unavailable ENEDINA, GERMAN Attending Unavailable Enedina, German Attending Unavailable Enedina, German Admitting Unavailable Problems Problem Classification Problem Date Documented [...] Test Name Value Interpretation Reference Range Facility Pathology Request for Lab Co rpon 06-09-2024 Pathology Request for Lab [place] Normal [facility] Comment on above: Order Comment: PATHO LOGY ENTERPRISE INTEGRATION DEVELOPER SPECIMEN Result Comment: See report. Scanned copy available in EMR. PERFORMED BY: [place] [address] PATHOLOGIST PUBLIC RELATIONS ASSISTANT MORENITA REGALADO M.D. Performed By: #### P ATH TO [facility] #### [address] Activated partial thrombopla stin time (aPTT) in platelet poor plasma by coagulation aon 04-20-2024 aPTT Coag (PPP) [Time] 28.5 s 22.3-36.2 [facility] Basophils Auto (Bld) [#/Vol] on 04-20-2024 Basophils (Bld) [#/Vol] 0.0 10 3/uL 0.0-0.1 [facility] Basophils/100 WBC Auto (Bld) on 04-20-2024 Basophils/100 WBC (Bld) 0.6 % 0.2-2.0 [facility] Eosinophils/100 WBC Auto (Bl d)on 04-20-2024 Eosinophils/100 WBC (Bld) 7.8 % High 0.9-7.0 [facility] Erythrocyte distribution wid th Auto (RBC) [Ratio]on 04-20-2024 Erythrocyte distribution width (RBC) [Ratio] 13.2 % 11.0-15.0 [facility] Glucose mean value [Mass/vol ume] in Blood Estimated from glycated hemoglobinon 04-20-2024 Average glucose Estimated from glycated hemoglobin (Bld) [Mass/Vol] 117 mg/dL [facility] Hematocrit Auto (Bld) [Volum e fraction]on 04-20-2024 Hematocrit (Bld) [Volume fraction] 33.4 % Low 36.0-48.0 [facility] Hemoglobin [Mass/volume] in Bloodon 04-20-2024 Hemoglobin (Bld) [Mass/Vol] 10.7 g/dL Low 12.0-16.0 [facility] INR in Platelet poor plasma by Coagulation assayon 04-20-2024 INR Coag (PPP) [Relative time] 0.95 {INR} [facility] Comment on above: DESIRED INR:2.0-3.0 CONDITIONS NOT LISTED BELOW2.5-3.5 FOR PROSTHETIC HEART VALVE REPLACEMENT2.5-3.5 RECURRENT THROMBOSIS Laboratory - Chemistry and C hemistry - challengeon 04-20-2024 Free T4 [Mass/Vol] 0.91 ng/dL 0.76-1.46 [facility] TSH Qn 1.302 m[IU]/L 0.358-3.740 [facility] Laboratory - Hematology and Cell countson 04-20-2024 HbA1c (Bld) [Mass fraction] 5.7 % 4.5-6.2 [facility] Comment on above: ADA RECOMMENDED LIMI T 4.0 - 6.0ADA THERAPEUTIC TARGET < 7.0ACTION SUGGESTED> 7.0 Immature granulocytes/100 WBC (Bld) 0.5 % 0.0-0.5 [facility] Leukocytes [#/volume] correc abdirizak for nucleated erythrocytes in Blood by Automated counon 04-20-2024 WBC corrected for nucl RBC Auto (Bld) [#/Vol] 6.4 10 3/uL 4.0-11.0 [facility] Lymphocytes Auto (Bld) [#/Vo l]on 04-20-2024 Lymphocytes (Bld) [#/Vol] 1.5 10 3/uL 1.2-3.8 [facility] Lymphocytes/100 WBC Auto (Bl d)on 04-20-2024 Lymphocytes/100 WBC (Bld) 23.2 % 20.5-60.0 [facility] MCH Auto (RBC) [Entitic mass ]on 04-20-2024 MCH (RBC) [Entitic mass] 25.3 pg Low 26.7-34.0 [facility] MCHC Auto (RBC) [Mass/Vol]on 04-20-2024 MCHC (RBC) [Mass/Vol] 32.0 g/dL 29.9-35.2 [facility] MCV Auto (RBC) [Entitic vol] on 04-20-2024 MCV (RBC) [Entitic vol] 79.0 fL Low 81.0-99.0 [facility] Monocytes Auto (Bld) [#/Vol] on 04-20-2024 Monocytes (Bld) [#/Vol] 0.5 10 3/uL 0.3-0.8 [facility] Monocytes/100 WBC Auto (Bld) on 04-20-2024 Monocytes/100 WBC (Bld) 7.5 % 1.7-12.0 [facility] Neutrophils Auto (Bld) [#/Vo l]on 04-20-2024 Neutrophils (Bld) [#/Vol] 3.9 10 3/uL 1.4-6.5 [facility] Neutrophils/100 WBC Auto (Bl d)on 04-20-2024 Neutrophils/100 WBC (Bld) 60.4 % 43.0-75.0 [facility] No Panel Informationon 04-20 Eosinophils # (Auto) 0.5 10 3/uL 0.0-0.7 [facility] Human Chorionic Gonadotropin, Quant <1 mIU/mL [facility] Comment on above: 5-50 0.2-1 XLUN30-10 0 1-2 YETAC167-6,000 2-3 EHJOK750-30,000 3-4 WEEKS1,000-50,000 4-5 WEEKS10,000-100,000 5-6 WEEKS15,000-200,000 6-8 WEEKS10,000-100,000 2-3 MONTHS Immature Granulocyte # (Auto) 0.03 10 3/uL 0.00-0.03 [facility] Platelet mean volume Auto (B ld) [Entitic vol]on 04-20-2024 Platelet mean volume (Bld) [Entitic vol] 9.5 fL 9.5-13.5 [facility] Platelets Auto (Bld) [#/Vol] on 04-20-2024 Platelets (Bld) [#/Vol] 248 10 3/uL 150-450 [facility] Prothrombin time (PT)on 04-02 PT Coag (PPP) [Time] 10.1 s 9.0-11.6 [facility] RBC Auto (Bld) [#/Vol]on RBC (Bld) [#/Vol] 4.23 10 6/uL 4.20-5.40 [facility] PAP ACOG PANEL 2: 30 to 65on 05-14-2018 Age Gdln ACOG Testing 30-65 Normal [facility] Comment on above: Performed By: #### [id number] ####[facility] F[address] [place] COMMENT Comment Normal [facility] Comment on above: Result Comment: Z01. 419Z11.51Performed at: WB Performed By: #### 4 [id number] ####[facility] [address] [place] [address] [place] DIAGNOSIS: Comment Normal [facility] Comment on above: Result Comment: NEGA TIVE FOR INTRAEPITHELIAL LESION AND MALIGNANCY.PREDOMINANCE OF COCCOBACILLI CONSISTENT WITH SHIFT IN VAGINAL SHERMAN ISPRESENT.THIS SPECIMEN WAS RESCREENED PART OF OUR DENTAL SALES REPRESENTATIVE PROGRAM.Performed at: WB Performed By: #### 4 [id number] ####[facility] [address] [place] [address] [place] HPV Aptima Negative Normal Negative [facility] Comment on above: Result Comment: This test was developed and its performance characteristicsdetermined by [facility]. It has not been cleared or approvedby the Food and Drug Administration.This test detects fourteen high-risk HPV types (16/18/31/33/35/39/45/51/52/56/58/59/66/68) without differentiation.Performed at: =G Performed By: #### 4 [id number] ####[facility] [address] [place] [address] [place] Methodology: Comment Normal [facility] Comment on above: Result Comment: This liquid based SurePath(R) pap test was screened with theassistance of an image guided system.Performed at: WB Performed By: #### 4 [id number] ####[facility] [address] [place] [address] [place] Note: Comment Normal [facility] Comment on above: Result Comment: The Pap smear is a screening test designed to aid in the detection ofpremalignant and malignant conditions of the uterine cervix. It is not adiagnostic procedure and should not be used as the sole means of detectingcervical cancer. Both false-positive and false-negative reports do occur. .Performed at: WB Performed By: #### 4 [id number] ####[facility] [address] [place] [address] Performed by: Comment Normal [facility] Comment on above: Result Comment: Susan Song, Manager Insurance (ASCP)Performed at: WB Performed By: #### 4 [id number] ####[facility] [address] [place] [address] QC reviewed by: Comment Normal [facility] Comment on above: Result Comment: Deirdre Slade, Supervisory Manager Insurance (ASCP)Performed at: WB Performed By: #### 4 [id number] ####[facility] [address] [place] [address] Specimen adequacy: Comment Normal [facility] Comment on above: Result Comment: Sati sfactory for evaluation. Endocervical and/or squamous metaplasticcells (endocervical component) are present.Performed at: WB Performed By: #### 4 [id number] ####[facility] [address] [place] [address] . . Normal [facility] Comment on above: Result Comment: Perf ormed at: WB Performed By: #### 4 [id number] ####[facility] [address] [place] [address] CHLAMYDIA/GONOCOCCUS LEONIE W/C ONF. (SWAB/Uon 05-07-2018 Chlamydia Trach LEONIE Negative Normal Negative [facility] Comment on above: Performed By: #### C T/NGNA ####[facility] [address] [place] [address] N. Gonorrhoeae LEONIE Negative Normal Negative [facility] Comment on above: Performed By: #### C T/NGNA ####[facility] [address] [place] [address] HERPES SIMPLEX VIRUS (HSV) C ULTUREon 05-07-2018 HSV Culture/Type Comment Abnormal [facility] Comment on above: Result Comment: Posi tive for Herpes simplex virus type-2. Typing was confirmed bymonoclonal antibody microscopic immunofluorescence. Performed By: #### H SVCUL ####[facility] [address] [place] VAGINITIS/VAGINOSIS DNA PROB Thomas 05-06-2018 Josefa species Negative Normal Negative [facility] Comment on above: Performed By: #### V AGINT ####[facility] [address] Gardnerella vaginalis Positive Abnormal Negative [facility] Comment on above: Performed By: #### V AGINT ####[facility] [address] Trichomonas vaginalis Negative Normal Negative [facility] Comment on above: Performed By: #### V AGINT ####[facility] [address] [place] Encounters Encounter Date Encounter Type Care Provider Facility Start: 06-09-2024 End: 06-09-2024 ambulatory German Enedina [facility] Work Phone: Start: 06-09-2024 End: 06-09-2024 Departed Referred DO German Enedina Work Phone: [facility] Start: 06-09-2024 End: 06-09-2024 ambulatory GERMAN ENEDINA Not Available Start: 05-04-2024 End: 05-04-2024 ambulatory GERMAN ENEDINA Not Available Start: 04-20-2024 Non-patient / Non-visit DO Cor ey Enedina [facility] Work Phone: Start: 05-04-2018 End: 05-04-2018 Patient encounter BERTHA SANCHEZ Facility:[facility]1 Start: 04-19-2018 End: 04-19-2018 Patient encounter NAVJOT HALL Facility:H1 Plan of Treatment Date Care Activity Detail Author Start: 06-09-2024 [facility] Payers Date Payer Category Payer Self-pay 2019 Private Health Insurance [id number] 1985 Unknown [id number] 1985 Unknown [id number] 1959 Self-pay [id number] 1959 Unknown [id number] Social History Date Type Detail Facility Tobacco smoking stat us VTIS Unknown if ever smoked [facility] Work Phone: Start: 1985 Sex Assigned At Female F [facility] Evaluation note Note Date & Type Note Facility Evaluation note No assessment information availa ble [facility] Work Phone: Summary Purpose Family History [...] DATE CREATED AUTHOR AUTHOR'S ORGANIZ ATION 06/11/[address] [facility] dical Specialists EPIC DATE CREATED AUTHOR AUTHOR'S ORGANIZ ATION 06/22/2024 [facility] ysician Group Care Teams (unrecognized sec tion [...] BE BASED ON THE PRIMARY CLINICAL RECORDS. [facility]. provides no warranty or guarantee of the accuracy or completeness of information in this document.
[2024-06-24 06:59] LABS: Basophils Absolute Auto 0.1 10^3/uL (0.0-0.1); Basophils Percent Auto 0.8 % (0.2-2.0); Eosinophils Absolute Auto 0.6 10^3/uL (0.0-0.7); Eosinophils Percent Auto 6.8 % (0.9-7.0); Hemoglobin 11.8 g/dL (12.0-16.0); Immature Granulocytes Abs Auto 0.05 10^3/uL (0.00-0.03); Immature Granulocytes Pct Auto 0.6 % (0.0-0.5); Lymphocytes Absolute Auto 2.6 10^3/uL (1.2-3.8); Lymphocytes Percent Auto 30.5 % (20.5-60.0); Mean Corpuscular HGB Conc 31.9 g/dL (29.9-35.2); Mean Corpuscular Hemoglobin 23.8 pg (26.7-34.0); Mean Corpuscular Volume 74.7 fL (81.0-99.0); Mean Platelet Volume 9.7 fL (9.5-13.5); Monocytes Absolute Auto 0.7 10^3/uL (0.3-0.8); Monocytes Percent Auto 7.7 % (1.7-12.0); Neutrophils Absolute Auto 4.6 10^3/uL (1.4-6.5); Neutrophils Percent Auto 53.6 % (43.0-75.0); Platelet Count 332 10^3/uL (150-450); Red Blood Count 4.95 10^6/uL (4.20-5.40); Red Cell Distribution Width 13.3 % (11.0-15.0); White Blood Count 8.6 10^3/uL (4.0-11.0)
[2024-06-24 07:32] LABS: HCG Quantitative <1 mIU/mL
[2024-06-24 07:40] LABS: Glucometer 105 mg/dL (74-106)
[2024-06-24] MEDS: LACTATED RINGER'S SOLUTION 1,000 ML 50 ML IV (07:44)
--- NOTE | 2024-06-24 08:54 | PM.ONB ---
Brief Operative Note Date of procedure: 06/24/24 Pre-op diagnosis general: menorrhagia Post-op diagnosis: same as pre-op Procedure: NAME OF PROCEDURE: [ ] Lou endometrial ablation with hysteroscopy. PROCEDURE: The patient was taken back to the OR where she was prepped and draped in the normal sterile fashion after being placed in the dorsal lithotomy position, after being placed under general anesthesia without difficulty.? A weighted speculum was placed into the vagina. The anterior lip was grasped with a single tooth tenaculum. The patient was then sounded to approximated 8cm. The patient?s cervix was gently dilated using hegardilators. The hysteroscope was passed through the cervix into the uterus where both ostia were seen. No gross evidence of polyps, fibroids or malignancy. The cervical length was noted to be 4 cm. The total cavity length is 4cm.? The Lou ablation apparatus was set to approximately 4cm in length. This was placed through the cervix and into the uterus. After the seal was tested, at that time the total ablation of 120 seconds was performed with the Lou withoutdifficulty. All instruments were removed from the vagina. Excellent hemostasis noted.? Sponge and lap count correct times 2.? Patient taken to recovery in stable condition. Anesthesia: MAC Surgeon: Santi Mcconnell Estimated blood loss (mL): 5 Pathology: none sent Condition: stable Disposition: PACU Urinary Catheter Management Urinary Catheter Management Straight: Cath placed during this visit: no
[2024-06-24] MEDS: HYDROMORPHONE HCL 0.5 MG/0.5 ML SYRINGE IV ×2 (09:12→09:20)
[2024-06-24] MEDS: HYDROCODONE/ACET 5-325 MG TABLET 1 TAB PO (10:03)
== END 2024-06-24 10:24 | disposition home or self-care (01) ==
PROVIDERS: PCP Internal Medicine; Visit Provider Obstetrics & Gynecology
PROC: (CPT 952; principal; 2024-06-24 08:05)
DX: N92.0 Excessive and frequent menstruation with regular cycle (principal); N93.9 Abnormal uterine and vaginal bleeding, unspecified; R10.2 Pelvic and perineal pain; Z90.49 Acquired absence of other specified parts of digestive tract; Z79.84 Long term (current) use of oral hypoglycemic drugs; F17.290 Nicotine dependence, other tobacco product, uncomplicated; I10 Essential (primary) hypertension; K21.9 Gastro-esophageal reflux disease without esophagitis; R73.03 Prediabetes
CPT/HCPCS: 58563; 36415; 82948; 84702; 85025; J1100; J1170; J1885; J2250; J2704; J3010

== ENCOUNTER 2025-05-25 15:18 | Outpatient (REF) | payer OTHER, SELFPAY ==
--- OUTSIDE RECORDS SUMMARY | 2025-05-25 10:00 | XMS_ITS | Encounter Summary ---
Author Organization [facility] Address [address] [facility] [place] [address] Care Team Providers Care Can Repairer Name Role Phone Navjot Stewart Primary Care Provider [phone] Reason for Visit * Reason Comments Well Women Visit Encounter Details Date Type Department Care Team (Late st Contact Info) Description 05/25/2025 10:00 AM EDT Office Visit [facility] [address] [place] [address] Giselle Tan PA [address] [place], [facility] Well woman exam with routine gynecological exam; [...] nursing note reviewed. Exam conducted with a business broker present. Vitals: Estimated body mass index is [...] Upcoming Encounters Date Type Department Care Team (Late st Contact Info) Description 06/22/2025 8:30 AM EDT Office Visit [facility] [address] [place] [address] Giselle Tan PA [address] [place], [place] [id number] Scheduled Orders Name Type Priority Associated Diagnoses [...] mammogram documented in this encounter Care Teams Can Repairer Relationship Specialty Start Date End Date Navjot Stewart DO [address] [facility] [place] [address] PCP - General Internal Medicine 05/04/24 documented as of this encounter
--- OUTSIDE RECORDS SUMMARY | 2025-05-25 15:22 | XMS_ITS | Encounter Summary ---
Author Organization [facility] Address [address] [facility] [place] [address] Care Team Providers Care Order Puller Name Role Phone Navjot Stewart DO Primary Care Provider [phone] Encounter Details Date Type Department Care Team ([facility] Contact Info) Description 06/15/2024 Abstract [facility] [address] [place] [address] Shasha Barber LPN [address] [id number] Social History Tobacco Use Types Packs/Day Years Used Date Smoking Tobacco: Never Assessed Comments No Sex and Gender Information Value Date Recorded Sex Assigned at Female 05/04/2024 7:31 AM EDT Legal Sex Female 6:54 PM EDT Gender Identity Female 05/04/2024 7:31 AM EDT Sexual Orientation Choose not to disclose 2023 7:31 AM EDT documented as of this encounter Plan of Treatment Upcoming Encounters Date Type Department Care Team (Late Contact Info) Description 06/22/2025 8:30 AM EDT Office Visit [facility] [address] [place] [address] Giselle Tan PA [address] [place] [address] documented as of this encounter Visit Diagnoses Not on filedocumented in this encounter Care Teams Order Puller Relationship Specialty Start Date End Date Navjot Stewart DO [address] [place] [address] PCP - General Internal Medicine 05/04/24 documented as of this encounter
--- OUTSIDE RECORDS SUMMARY | 2025-05-25 15:22 | XMS_ITS | Clinical Summary ---
Author Organization [facility] Address [address] [facility] [place] [address] Care Team Providers Care Cardiopulmonary Technologist Name Role Phone Navjot Stewart DO Primary Care Provider [phone] Allergies No known active allergies Medications atenolol (Tenormin) 100 MG tablet Take 100 mg by mouth Daily 03/18/20 24 Active valACYclovir (Valtrex) 500 MG tablet Take 500 mg by mouth Daily Active valACYclovir (Valtrex) 500 MG tabletIndications: Herpes, vulvovaginitis Take 1 tablet (500 mg) by mouth Daily 90 tablet 3 05/04/20 24 025 metFORMIN XR (Glucophage-XR) 500 MG 24 hr tabletIndications: Insulin resistance Take 1 tablet by mouth in the evening with a meal. Do not crush, chew, or split. 30 tablet 3 04/24/20 25 025 Discontinued Encounters Date Type Department Care Team Description 05/25/2025 10:00 AM EDT Office Visit [facility] [address] [place] [address] Giselle Tan PA Well woman exam with routine gynecological exam; Breast cancer screening by mammogram 05/25/2025 Bamboo flowsheet [facility] [address] [place] [address] Giselle Tan PA 04/14/2025 Refill [facility] [address] [place], [place] [address] [place] [address] Santi Mcconnell DO Insulin resistance from Last 3 Months Family History Medical History Relation Name Comments Diabetes Father Breast cancer Mother Relation Name Status Comments Father Alive Mother Alive Social History Tobacco Use Types Packs/Day Years Used Date Smoking Tobacco: Never Assessed Comments No Sex and Gender Information Value Date Recorded Sex Assigned at Female 05/04/2024 7:31 AM EDT Legal Sex Female 6:54 PM EDT Gender Identity Female 05/04/2024 7:31 AM EDT Sexual Orientation Choose not to disclose 2023 7:31 AM EDT Last Filed Vital Signs Vital Sign Reading [...] Mass Index 34.61 05/25/2025 9:44 AM EDT Plan of Treatment Upcoming Encounters Date Type Department Care Team (Late st Contact Info) Description 06/22/2025 8:30 AM EDT Office Visit [facility] [address] [facility] [address] Giselle Tan PA [address] [facility] [place] [address] Insurance [facility] Care Teams Cardiopulmonary Technologist Relationship Specialty [place] [address] [place] [phone] PCP - General Internal Medicine 05/04/24
--- OUTSIDE RECORDS SUMMARY | 2025-05-25 15:22 | XMS_ITS | Encounter Summary ---
Author Organization [facility] Address [address] [facility] [place] [address] Care Team Providers Care Beef Skinner Name Role Phone Navjot Stewart DO Primary Care Provider [phone] Encounter Details Date Type Department Care Team ([facility] Contact Info) Description 05/25/2025 Bamboo flowsheet [facility] OB [address] [facility] [place] [id number] Giselle Tan PA [address] [place] [address] [place], [place] [id number] Social History Tobacco Use Types Packs/Day Years [...] Upcoming Encounters Date Type Department Care Team ([facility] Contact Info) Description 06/22/2025 8:30 AM EDT Office Visit [facility] [address] [facility] [place] [address] Giselle Tan PA [address] [place] [address] [place], [place] [id number] documented as of this encounter Visit Diagnoses Not on filedocumented in this encounter Care Teams Beef Skinner Relationship Specialty [place] [address] [place] [phone] PCP - General Internal Medicine 05/04/24 documented as of this encounter
--- OUTSIDE RECORDS SUMMARY | 2025-05-25 15:22 | XMS_ITS | Encounter Summary ---
Author Organization [facility] Address [address] [facility] [place] [address] Care Team Providers Care Re Etcher Name Role Phone Navjot Stewart DO Primary Care Provider [phone] Encounter Details Date Type Department Care Team (Late Contact Info) Description 04/21/2024 Clinisync Result Encounter [facility] External Department Unsolicited German Mcconnell DO [address] [facility] [address] Keshawn Gray, [facility] Social History Tobacco Use Types Packs/Day Years Used Date Smoking Tobacco: Never Assessed Comments Unknown Sex and Gender Information Value Date Recorded Sex Assigned at Female 05/04/2024 7:31 AM EDT Legal Sex Female 6:54 PM EDT Gender Identity Female 05/04/2024 7:31 AM EDT Sexual Orientation Choose not to disclose 2023 7:31 AM EDT documented as of this encounter Plan of Treatment Upcoming Encounters Date Type Department Care Team ([facility] Contact Info) Description 06/22/2025 8:30 AM EDT Office Visit [facility] [address] [facility] [place] [address] Giselle Tan PA [address] [facility] [address] [place], [place] [phone] documented as of this encounter Procedures Procedure Name Priority Date/Time Associated Diagnosis Comments US PELVIS TRANSVAGINAL 04/21/2024 10:57 AM EDT documented in this encounter Results * US PELVIS TRANSVAGINAL (04/21/2024 10:57 AM EDT) Anatomical Region Laterality Modality Other 04/21/2024 10:5 7 AM EDT Narrative 04/21/2024 11:00 [place] [address] Ultrasound Report Signed Patient: VAISHALI ESCOBAR MR#: [id number] : 1985 Acct:[id number] Age/Sex: 39 / F ADM Date: 04/20/24 Loc: US Attending Dr: German Mcconnell D.O. Ordering Physician: German Mcconnell D.O. Date of Service: 04/20/24 Procedure(s): US pelvis transvaginal Accession Number(s): [id number] cc: Navjot Stewart D.O.; German Mcconnell D.O. [place] [address] Patient Name: VAISHALI ESCOBAR MRN: [id number] date: 1985 Sex: F Assigned Patient Location: US Current Patient Location: Accession/Order Number: [id number] Exam Date: 04/20/2024 09:00 Report Date: 04/21/2024 10:57 At the request of: GERMAN MCCONNELL Procedure: US pelvis transvaginal EXAMINATION: US pelvis transvaginal HISTORY: Menorrhagia COMPARISON: No relevant comparison available. TECHNIQUE: Transabdominal and/or transvaginal sonographic examination was performed as indicated by examination type. FINDINGS: UTERUS: Normal size and appearance. Uterus size: 8.9 x 5.6 x 4.0 cm ENDOMETRIUM: Normal homogeneous appearance. Endometrial thickness: 12 mm RIGHT OVARY: Not seen. No suspicious adnexal findings. LEFT OVARY: Contains a 3.5 cm benign-appearing cyst. Duplex Doppler demonstrates normal waveform and flow; resistive index 0.5. Ovary size: 4.1 x 3.9 x 2.8 mm CUL-DE-SAC: Unremarkable. No significant free fluid. BLADDER: Unremarkable. OTHER: None. US/US pelvis transvaginal IMPRESSION: 1. No abnormal or suspicious findings to account for patient's symptoms. 2. Right ovary was not seen. Electronically authenticated by: JOSE DOMINGUEZ Date: 04/21/2024 10:57 Dictated By: Jose Dominguez M.D. Signed By: 04/21/24 1100 DD/ 1057 TD/TT: Dough Mixing Machine Operator: Procedure Note Radiology, Radiologist, MD - 04/21/2024 [place] [address] Ultrasound Report Signed Patient: VAISHALI ESCOBAR DMR#: [id number] : 1985Acct:[id number] Age/Sex: 39 / FADM Date: 04/20/24 Loc: US Attending Dr: German Mcconnell D.O. Ordering Physician: German Mcconnell D.O. Date of Service: 04/20/24 Procedure(s): US pelvis transvaginal Accession Number(s): [id number] cc: Navjot Stewart D.O.; German Mcconnell D.O. [place] [id number] Patient Name: VAISHALI ESCOBAR MRN: [id number] date: 1985 Sex: F Assigned Patient Location: Current Patient Location: Accession/Order Number: [id number] Exam Date: 04/20/2024 09:00 Report Date: 04/21/2024 10:57 At the request of: GERMAN MCCONNELL Procedure: US pelvis transvaginal EXAMINATION: US pelvis transvaginal HISTORY: Menorrhagia COMPARISON: No relevant comparison available. TECHNIQUE: Transabdominal and/or transvaginal sonographic examination was performed as indicated by examination type. FINDINGS: UTERUS: Normal size and appearance. Uterus size: 8.9 x 5.6 x 4.0 cm ENDOMETRIUM: Normal homogeneous appearance. Endometrial thickness: 12 mm RIGHT OVARY: Not seen. No suspicious adnexal findings. LEFT OVARY: Contains a 3.5 cm benign-appearing cyst. Duplex Doppler demonstrates normal waveform and flow; resistive index 0.5. Ovary size:4.1 x 3.9 x 2.8 mm CUL-DE-SAC: Unremarkable. No significant free fluid. BLADDER: Unremarkable. OTHER: None. US/US pelvis transvaginal IMPRESSION: 1. No abnormal or suspicious findings to account for patient's symptoms. 2. Right ovary was not seen. Electronically authenticated by: JOSE DOMINGUEZ Date: 04/21/2024 10:57 Dictated By: Jose Dominguez M.D. Signed By:04/21/24 1100 DD/ 1057 TD/TT: Dough Mixing Machine Operator: us German Mcconnell DO [facility] Final Result documented in this encounter Visit Diagnoses Not on filedocumented in this encounter Care Teams Re Etcher Relationship Specialty Start Date End Date Navjot Stewart DO [address] [place] [phone] PCP - General Internal Medicine 05/04/24 documented as of this encounter
--- OUTSIDE RECORDS SUMMARY | 2025-05-25 15:22 | XMS_ITS | Encounter Summary ---
Author Organization [facility] Address [address] [facility] [place] [address] Care Team Providers Care Divemaster Name Role Phone Navjot Hall DO Primary Care Provider [phone] Encounter Details Date Type Department Care Team (Late st Contact Info) Description 06/16/2024 Clinisync Result Encounter [facility] External Department Unsolicited German Mcconnell DO [address] [facility] [address] [place]wn Gray, [facility]11 Social History Tobacco Use Types Packs/Day Years [...] EDT Office Visit [facility] [address] [facility] [place] [address] Giselle Tan PA [address] [facility] [address] [place], [facility]11 documented as of this encounter Procedures Procedure Name Priority Date/Time Associated Diagnosis Comments ECG 12-LEAD 06/16/2024 11:46 AM EDT documented in this encounter Results * ECG 12-LEAD (06/16/2024 11:46 AM EDT) Anatomical Region Laterality Modality Other 06/16/2024 11:4 6 AM EDT Narrative 06/16/2024 5:52 [place] [address] Electrocardiograph Report Signed Patient: VAISHALI ESCOBAR MR#: [id number] : 1985 Acct:[id number] Age/Sex: 39 / F ADM Date: 06/16/24 Loc: PST Attending Dr: German Mcconnell D.O. Ordering Physician: German cMconnell D.O. Date of Service: 06/16/24 Procedure(s): ECG 12 lead Accession Number(s): [id number] cc: The [facility] Test Date: 2024-06-16 Pat Name: VAISHALI ESCOBAR Department: Room: - Gender: Female Boring Machine Operator: : 1985 Requested By: GERMAN MCCONNELL Order Number: [id number] Reading MD: NAVJOT HALL Measurements Intervals [place] Rate: 50 P: -6 MO: 182 QRS: 39 QRSD: 94 T: 33 QT: 404 QTc: 369 Interpretive Statements SINUS BRADYCARDIA WITH SINUS ARRHYTHMIA No previous ECG available for comparison Electronically Signed On 06-16-2024 17:52:04 EDT by NAVJOT HALL Dictated By: Navjot Hall D.O. Signed By: 06/16/24 1752 DD/ 1146 TD/TT: Systems Qa Analyst: Procedure Note Radiology, Radiologist, MD - 06/16/2024 The [place] [id number] Electrocardiograph Report Signed Patient: VAISHALI ESCOBAR DMR#: [id number] : 1985Acct:[id number] Age/Sex: 39 / FADM Date: 06/16/24 Loc: PST Attending Dr: German Mcconnell D.O. Ordering Physician: German Mcconnell D.O. Date of Service: 06/16/24 Procedure(s): ECG 12 lead Accession Number(s): [id number] cc: The [facility] Test Date: 2024-06-16 Pat Name: VAISHALI ESCOBAR Department: Room: - Gender: Female Boring Machine Operator: : 1985 Requested By: GERMAN MCCONNELL Order Number: [id number] Reading MD: NAVJOT HALL Measurements Intervals [place] Rate: 50 P: -6 MO: 182 QRS: 39 QRSD: 94 T: 33 QT: 404 QTc: 369 Interpretive Statements SINUS BRADYCARDIA WITH SINUS ARRHYTHMIA No previous ECG available for comparison Electronically Signed On 06-16-2024 17:52:04 EDT by NAVJOT HALL Dictated By: Navjot Hall D.O. Signed By:06/16/24 1752 DD/ 1146 TD/TT: Systems Qa Analyst: us German Mcconnell DO [facility] Final Result documented in this encounter Visit Diagnoses Not on filedocumented in this encounter Care Teams Divemaster Relationship Specialty Start Date End Date Navjot Hall DO [address] [place] [address] PCP - General Internal Medicine 05/04/24 documented as of this encounter
[2025-05-28 10:16] LABS: Age Gdln ACOG Testing Note (.); IGP, Aptima HPV, rfx 16/18,45 Note (.)
== END 2025-05-25 15:19 | disposition home or self-care (01) ==
LOC: LAB 15:18
PROVIDERS: PCP Internal Medicine; Visit Provider Physician Assistant
DX: Z01.419 Encounter for gynecological examination (general) (routine) without abnormal findings (principal)
CPT/HCPCS: 87624; 88175

== ENCOUNTER 2025-06-08 10:01 | Outpatient (OUT) | payer OTHER, SELFPAY ==
--- OUTSIDE RECORDS SUMMARY | 2025-05-25 10:00 | XMS_ITS | Encounter Summary ---
Author Organization [facility] Address [address] [facility] [place] [address] Care Team Providers Care Motion Graphics Designer Name Role Phone Navjot Stewart Primary Care Provider [phone] Reason for Visit * Reason Comments Well Women Visit Encounter Details Date Type Department Care Team (Late st Contact Info) Description 05/25/2025 10:00 AM EDT Office Visit [facility] [address] [place] [id number] Giselle Tan PA [address] [place], [facility]11 Well woman exam with routine gynecological exam; Breast cancer screening by mammogram Social History Tobacco Use Types Packs/Day Years Used Date Smoking Tobacco: Never Assessed Comments No Sex and Gender Information Value Date Recorded Sex Assigned at Female 05/04/2024 7:31 AM EDT Legal Sex Female 6:54 PM EDT Gender Identity Female 05/04/2024 7:31 AM EDT Sexual Orientation Choose not to disclose 2023 7:31 AM EDT documented as of this encounter Last Filed Vital Signs Vital Sign Reading Time Taken Comments Blood Pressure 120/80 05/25/2025 9:44 AM EDT Pulse - - Temperature - - Respiratory Rate - - Oxygen Saturation - - Inhaled Oxygen Concentration - - Weight 88.6 kg (195 lb 6.4 oz) 05/25/2025 9:44 A M EDT Height 160 cm (5' 3 ) 05/25/2025 9:44 AM EDT Body Mass Index 34.61 05/25/2025 9:44 AM EDT documented in this encounter Progress Notes * MONTSE Reeder - 05/25/2025 10:00 AM EDT Reason for Appointment: Patient ID: Vaishali Escobar is a 40 y.o. female who presents for Well Women Visit Patient presents today for Annual Exam. MEDICATIONS Current Outpatient Medications Medication Instructions atenolol (TENORMIN) 100 mg, Daily valACYclovir (VALTREX) 500 mg, Daily ALLERGIES No Known Allergies PROBLEMS Active Ambulatory Problems Diagnosis Date Noted No Active Ambulatory Problems Resolved Ambulatory Problems Diagnosis Date Noted No Resolved Ambulatory Problems Past Medical History: Diagnosis Date Compound fracture HISTORY PAST MEDICAL HISTORY SOCIAL HISTORY Past Medical History: Diagnosis Date Compound fracture Social History Tobacco Use Smoking status: Not on file Smokeless tobacco: Not on file Substance Use Topics Alcohol use: Not on file Drug use: Not on file FAMILY HISTORY Family History Problem Relation Name Age of Onset Breast cancer Mother Diabetes Father SURGICAL HISTORY Past Surgical History: Procedure Laterality Date BONE GRAFT SECTION, LOW TRANSVERSE x2 CHOLECYSTECTOMY CYST REMOVAL ENDOMETRIAL ABLATION 06/02/2024 SKIN GRAFT TUBAL LIGATION REVIEW OF SYSTEMS Review of Systems: Review of Systems Constitutional: Negative. HENT: Negative. Eyes: Negative. Respiratory: Negative. Cardiovascular: Negative. Gastrointestinal: Negative. Genitourinary: Negative. Musculoskeletal: Negative. Skin: Negative. Neurological: Negative. All other systems reviewed and are negative. Hematological: Negative. Endocrine: Negative. Allergic/Immunologic: Negative. OBJECTIVE Objective: Physical Exam Constitutional: Appearance: Normal appearance. Genitourinary: Right Adnexa: not tender and no mass present. Left Adnexa: not tender and no mass present. No cervical discharge. Breasts: Breasts are soft. Right: Normal. Left: Normal. HENT: Head: Normocephalic. Nose: Nose normal. Mouth/Throat: Mouth: Mucous membranes are moist. Cardiovascular: Rate and Rhythm: Normal rate. Pulmonary: Effort: Pulmonary effort is normal. Abdominal: General: Bowel sounds are normal. Palpations: Abdomen is soft. Musculoskeletal: General: Normal range of motion. Cervical back: Normal range of motion. Neurological: General: No focal deficit present. Mental Status: She is alert. Skin: General: Skin is warm and dry. Psychiatric: Mood and Affect: Mood normal. Vitals and nursing note reviewed. Exam conducted with a weight and test bar clerk present. Vitals: Estimated body mass index is 34.61 kg/m?? as calculated from the following: Height as of this encounter: 5' 3 . Weight as of this encounter: 195 lb 6.4 oz. BP: 120/80 Patient's last menstrual period was 05/02/2025 (approximate). ASSESSMENT & PLAN ICD-10-CM 1. Well woman exam with routine gynecological exam Z01.419 THIN PREP TIS PAP AND HR HPV DNA 2. Breast cancer screening by mammogram Z12.31 Bilateral screening mammogram Bilateral screening mammogram Annual Exam: Patient presents today for an annual exam. Patient states she is doing well and has no complaints. Pap was obtained without difficulty. Orders Placed This Encounter Procedures Bilateral screening mammogram Follow Up: Patient is to return in one year for annual unless needed otherwise. Documented by MONTSE Reeder on behalf of: MONTSE Reeder documented in this encounter Plan of Treatment Upcoming Encounters Date Type Department Care Team ([facility] st Contact Info) Description 06/22/2025 8:30 AM EDT Office Visit YOSVANY DEE [address] [place] [address] Giselle Tan PA [address] [place] [address] Scheduled Orders Name Type Priority Associated Diagnoses Orde r Schedule Bilateral screening mammogram Imaging Routine Breast cancer screening by mammogram Expected: 05/25/2025 (Approximate), Expires: 07/26/2026 THIN PREP TIS PAP AND HR HPV DNA Pathology and Cytology Routine Well woman exam with routine gynecological exam Ordered: 05/25/2025 documented as of this encounter Visit Diagnoses Diagnosis Well woman exam with routine gynecological exam Routine gynecological examination Breast cancer screening by mammogram documented in this encounter Care Teams Motion Graphics Designer Relationship Specialty Start Date End Date Navjot Stewart DO [address] [facility] [place] [address] PCP - General Internal Medicine 05/04/24 documented as of this encounter
--- OUTSIDE RECORDS SUMMARY | 2025-05-30 05:31 | XMS_ITS | Continuity of Care Document ---
Author Organization [facility] Address [address] [place] [address] Phone Care Team Providers Care Cover Making Machine Operator Name Role Phone Navjot Stewart DO Primary Care Provider [phone] Giselle Tan PA-C Attending Provider Unavailable Navjot Stewart DO Attending Provider [phone] Care Teams Patient Care Team Team Status: Active Member Role Status Dates Navjot Stewart DO Primary Care Provider Active Patient Care Team Team Status: Active Member Role Status Dates Navjot Stewart DO Primary Care Provider Active Start: May 25, 2025 Giselle Tan PA-C Attending Provider Active Start : May 25, 2025 Patient Care Team Team Status: Inactive Member Role Status Dates Navjot Stewart DO Primary Care Provider Active Start: May 30, 2025 End: May 30, 2025 Navjot Stewart DO Attending Provider Active Sta rt: May 30, 2025 End: May 30, 2025 Chief Complaint and Reason for Visit Chief Complaint Admit Date Wellness May 30, 2025 8:50 am Reason for Visit Admit Date ARUNA (generalized anxiety disorder) May 30, 2025 8:50am Hypertension May 30, 2025 8:50 am Nicotine addiction May 30, 2025 8:50 am Obesity May 30, 2025 8:50 am Palpitation May 30, 2025 8:50 am Wellness examination May 30, 2025 8:5 0am Allergies, Adverse Reactions, Alerts Allergen Type Severity Reaction Last Updated Verified Status No Known Allergies Allergy Unknown May 30, 2025 8:53a m Yes Active Social History Smoking Status Status Start Date End Date Date of Observa tion Smokes tobacco daily (finding) May 30, 2025 8:53am Observation Status Observation Response Date of Response Legal Sex Female (finding) Sex Assigned At Female 1985 Family History Relationship Condition Age at Onset Recorded Date/T marci father Malignant neoplasm Unknown History of malignant neoplasm of prostate Unknown Diabetes mellitus Unknown grandparent Unknown grandparent Unknown grandparent Unknown mother Diabetes mellitus Unknown Malignant neoplasm of breast Unknown Malignant neoplasm Unknown Hypertension Unknown Problems Active Problems Medical Problem Onset Date Status Nicotine addiction Unknown Active ARUNA (generalized anxiety disorder) Unknown Active Palpitation Unknown Active Wellness examination Unknown Active Hypertension Unknown Active Obesity Unknown Active Medications Medication Status Dose Units Route Directions Qty Days art Date Stop Date End Date Instructions Adherence Atenolol 100 mg tablet Discont inued 100 MG PO Daily June 20, 2024 12:00a m Augus t 2023 11:43 am Atenolol 100 mg tablet Discont inued 0 .ROUTE .COMPLEX 90 June 20, 2024 11:43a m Novem kacie 2023 7:18p m TAKE 1 TABLET BY MOUTH EVERY DAY Atenolol 100 mg tablet Discont inued 0 .ROUTE .COMPLEX er 2023 7:18pm May 09, 2025 10:32 am TAKE 1 TABLET BY MOUTH EVERY DAY Atenolol 100 mg tablet Active 100 MG PO Daily 90 May 09, 2025 10:32a m Complies with drug therapy Relevant Diagnostic Tests and/or Laboratory Data Laboratory Results Test Collection Date/Time Result Date/Time Result Interpretation Reference Range Result Comment Performing Site Referenc e Lab Test Patient Age May 25, 2025 9:35am May 25, 2025 9:35am Note . TESTS RESULT FLAG UNITS REF RANGE LAB-------- -------- Clinician Provided Cytology Information Source..... ........Cer vix;Endocer vix No. of containers. .01 ThinPrep VialAge Zulayo ANTONINOOG Sangita... 30-65 01--------- ------- FLAG LEGEND: L-Low Normal,H-Hi gh Normal,LL-A lert Low,HH-Aler t High <-Panic Low,>-Panic High,A-Abno rmal,AA-Cri tical Abnormal--- --Performed at:[address] [facility] [place] [address] Jen Tong MD, Phone: HPV High Risk Other Comment May 25, 2025 9:35am May 25, 2025 9:35am Note . TESTS RESULT FLAG UNITS REF RANGE LAB-------- --------WIL GNOSIS: 02 NEGATIVE FOR INTRAEPITHE LIAL LESION OR MALIGNANCY. Specimen adequacy: 02 Satisfactor y for evaluation. No endocervica l component is identified. Performed by: Danyell Murray Etymology Teacher. 02Note: Note 02 The Pap smear is a screening test designed to aid in the detection of premalignan t and malignant conditions of the uterine cervix. It is not a diagnostic procedure and should not be used as the sole means of detecting cervical cancer. Both false-posit yessy and false-negat yessy reports do occur.Test Methodology : Note 02 This liquid based ThinPrep(R) pap test was screened with the use of an image guided system.HPV Genotype Reflex Note 02 Criteria not met, HPV Genotype not performed.- ---- FLAG LEGEND: L-Low Normal,H-Hi gh Normal,LL-A lert Low,HH-Aler t High <-Panic Low,>-Panic High,A-Abno rmal,AA-Cri tical Abnormal--- --Performed at:[facility] [address] [place] [address] Jen Tong MD, Phone: HPV Genotype Source May 25, 2025 9:35am May 25, 2025 9:35am Negative Negative This nucleic acid amplificati on test detects fourteen high-risk HPV types (16,18,31,3 3,35,39,45, 51,52,56,58 ,59,66,68)[facility] at: = - [place] [address] [address], [place] [id number] b Director: Jen Tong MD, Phone: [phone] erformed at: [place] [address] [address], [place] [id number] b Director: Jen Tong MD, Phone: [phone] Vital Signs Vital Reading Result Reference Range Collection Date/Time Height 63 [in_i] May 30, 2025 8:56am Weight 87.77 kg May 30, 2025 8:56am Heart Rate 51 /min 60-100 May 30, 2025 8:56am Respiratory rate 12 /min 12-24 May 30, 2025 8:56am BP Systolic 139 mm[Hg] 100-140 May 30, 2025 8:56am BP Diastolic 89 mm[Hg] 60-100 May 30, 2025 8:56am BMI (Body Mass Index) 34.2 kg/m2 May 032024 8:56am Advance Directives Advance Directive Response Recorded Date/ Time Advance Directives No June 24, 2024 7:02am Insurance Providers Guarantor Vaishali Escobar Address [address] [place] [id number] Contact Info. Home Phone: Payer Policy Id Subscriber's Name Subscriber Id Effectiv e Date Expiration Date UMR [id number] Vaishali Escobar [id number] Encounters Encounter Location(s) Arrival/Admit Date Discharge/Depart Date Provider(s) Non-patient / Non-visit -[facility] May 25, 2025 9:35am MONTSE Todd Departed Physician/Prov ider Office Visit -[facility] May 30, 2025 8:50am May 30, 2025 9:31am Navjot Stewart , Recent Diagnosis Onset Date Admit Date ARUNA (generalized anxiety disorder) Unknown May 30, 2025 8:50am Hypertension Unknown May 30, 2025 8:50am Nicotine addiction Unknown May 30 8:50am Obesity Unknown May 30, 2025 8:50am Palpitation Unknown May 30, 2025 8:50am Wellness examination Unknown May 30, 2025 8:50am Assessments Diagnosis Onset Date Resolution Status Admit Date ARUNA (generalized anxiety disorder) acute May 30, 2025 8:50am Hypertension acute May 30 025 8:50am Nicotine addiction acute May 032024 8:50am Obesity acute May 30 8:50am Palpitation acute May 30 8:50am Wellness examination acute May 30, 2025 8:50am Plan of Treatment Author Navjot Stewart [facility] Authored May 30, 2025 9:28 am I have instructed this patie nt on the recommended lifestyle changes, which includes a low fat, high fiber diet along with a regular exercise routine. I have also reviewed the recommended age-appropriate preventive testing for this patient. I have also reviewed the recommended vaccines for their age and risk factors. I have instructed this patient to consume a healthy, low-fat, low-salt diet. I have also encouraged them to continue exercise with weight loss to achieve/maintain a BMI < 30. I have instructed this patient on the correct procedure for obtaining home BP measurements: - rest for 5 minutes w/o talking. - positioned w/ feet on floor and arms supported. - average best 2/3 readings w/ goal < 135/85. Update office w/ home readings in 2 weeks. May require additional anti hypertensive treatment Continue Atenolol without interruption I have instructed this patient on a low-fat, high-fiber diet. I have also instructed them to reduce calories, portions sizes, sweet drinks and snacks. I have also recommended they exercise for 30 minutes, 3-5 times weekly. They are aware of the comorbid conditions associated with excessive weight: Diabetes, HTN, Hyperlipidemia, CAD and arthritis. This patient has been encouraged to quit tobacco use immediately. They are aware of the hazards associated with tobacco use, including but not limited to respiratory infections, vascular disease and cancers. Scheduled for yearly LDCT chest for lung cancer screening is recommended. Quit tobacco use 2022 I have instructed this patient on the recommended lifestyle changes, which includes a low fat, high fiber diet along with a regular exercise routine. I have also reviewed the recommended age-appropriate preventive testing for this patient. I have also reviewed the recommended vaccines for their age and risk factors. Instructed to decrease nicotine use. Hydrate and follow a healthy diet Continue Atenolol without interruption May switch to Metoprolol in future Future Tests Future scheduled test information is unavailable Pending Tests Test Name Ordered Date Scheduled Date Comprehensive Metabolic Panel May 30, 2025 9: 28am Future Visits Future appointment information is unavailable Referrals to Other Providers Referral information is unavailable Future Procedures Procedure Name Ordered Date Scheduled Date Complete Blood Count Auto Diff May 30, 2025 9 :28am Lipid Panel May 30, 2025 9:28am Thyroid Stimulating Hormone May 30, 2025 9:28 am Future Medications Future medication information is unavailable Patient Instructions Patient instructions are unavailable
--- NOTE | 2025-06-08 | MM_ITS ---
Patient Name: KALEB MCCAULEY MR#: [id number] : 1985 Exam Date: 06/08/2025 Ordering Doctor: MONTSE KELLY . RADIOLOGY REPORT PROCEDURE: MM TOMOSYNTHESIS SCREENING BI COMPARISON: None. INDICATIONS: BREAST CANCER SCREENING Z12.31 Calculator Name NCI Breast Cancer Risk Assessment Tool 5 Year Breast Cancer Risk 1.00% Lifetime Breast Cancer Risk 17.90% Personal Breast Cancer No Personal Ovarian Cancer No Treatments None Family Cancers Mother with breast cancer at age 55. LOCATION: [facility] BREAST COMPOSITION: There are scattered areas of fibroglandular density. FINDINGS: RIGHT BREAST: There is a 7 mm focal asymmetry of the lateral aspect of the right breast 11 cm from the nipple. Benign-appearing calcification is noted. Benign-appearing lymph nodes are noted along the chest wall. LEFT BREAST: No significant suspicious finding. Benign-appearing lymph nodes in the along the chest wall. DIAGNOSTIC CATEGORY 0--INCOMPLETE: NEED ADDITIONAL IMAGING EVALUATION. RECOMMENDATIONS: ADDITIONAL MAMMOGRAPHIC VIEWS REQUIRED: RIGHT BREAST - spot compressed views of the right breast with ultrasound if necessary is recommended. PLEASE NOTE: A NORMAL MAMMOGRAM DOES NOT EXCLUDE THE POSSIBILITY OF BREAST CANCER. A CLINICALLY SUSPICIOUS PALPABLE LUMP SHOULD BE BIOPSIED. Dictated by: Yovany Renee MD on 06/08/2025 at 13:33 Approved by: Yovany Renee MD on 06/08/2025 at 13:40
--- OUTSIDE RECORDS SUMMARY | 2025-06-08 10:04 | XMS_ITS | Encounter Summary ---
Author Organization [facility] Address [address] [facility] [place] [address] Care Team Providers Care Cleaning Maid Name Role Phone Navjot Stewart DO Primary Care Provider [phone] Encounter Details Date Type Department Care Team (Late st Contact Info) Description 05/31/2025 Orders Only [facility] DEE [address] [place] [address] [place] [address] Alisa Walker MA Social History Tobacco Use Types Packs/Day Years [...] 8:30 AM EDT Office Visit [facility] DEE [address] [place] [address] [place] [address] Giselle Tan PA [address] [place] [address] [place], [place] [id number] documented as of this encounter Procedures Procedure Name Priority Date/Time Associated Diagnosis Comments PAP SMEAR Routine 05/25/2025 12:00 AM EDT documented in this encounter Results * Pap Smear (05/25/2025 12:00 AM EDT) Swab Cervical swab / Unknown us [facility] CYTOLOGY ORDERABLES Final Re sult EXTERNAL LAB documented in this encounter Visit Diagnoses Not on filedocumented in this encounter Care Teams Cleaning Maid Relationship Specialty Start Date End Date Navjot Stewart DO [address] [place] [address] PCP - General Internal Medicine 05/04/24 documented as of this encounter
--- OUTSIDE RECORDS SUMMARY | 2025-06-08 10:04 | XMS_ITS | Encounter Summary ---
Author Organization [facility] Address [address] [facility] [place] [address] Care Team Providers Care Truck Jumper Name Role Phone Navjot Hall DO Primary Care Provider [phone] Encounter Details Date Type Department Care Team (Late st Contact Info) Description 06/16/2024 Clinisync Result Encounter N[facility]S External Department Unsolicited German Mcconnell DO [address] [facility] [address] Keshawn Gray, [facility] Social History Tobacco Use Types [...] Description 06/22/2025 8:30 AM EDT Office Visit [facility]Sherif Gray [facility] [address] [facility] [place] [phone] Giselle Tan PA [address] [facility] [address] [place], [place] [phone] documented as of this encounter Procedures Procedure Name Priority Date/Time Associated Diagnosis Comments ECG 12-LEAD 06/16/2024 11:46 AM EDT documented in this encounter Results * ECG 12-LEAD (06/16/2024 11:46 AM EDT) Anatomical Region Laterality Modality Other 06/16/2024 11:4 6 AM EDT Narrative 06/16/2024 5:52 [place] [address] Electrocardiograph Report Signed Patient: VAISHALI ESCOBAR MR#: [id number] : 1985 Acct:[id number] Age/Sex: 39 / F ADM Date: 06/16/24 Loc: PST Attending Dr: German Mcconnell D.O. Ordering Physician: German Mcconnell D.O. 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 Signed By: 06/16/24 1752 DD/ 1146 TD/TT: Agricultural Engineer: Procedure Note Radiology, Radiologist, MD - 06/16/2024 The [place] [id number] Electrocardiograph Report Signed Patient: VAISHALI ESCOBAR DMR#: [id number] : 1985Acct:[id number] Age/Sex: 39 / FADM Date: 06/16/24 Loc: PST Attending Dr: German Mcconnell D.O. Ordering Physician: German Mcconnell D.O. 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 Signed By:06/16/24 1752 DD/ 1146 TD/TT: Agricultural Engineer: us German Mcconnell DO [facility] Final Result documented in this encounter Visit Diagnoses Not on filedocumented in this encounter Care Teams Truck Jumper Relationship Specialty Start Date End Date Navjot Hall DO [address] [place] [address] PCP - General Internal Medicine 05/04/24 documented as of this encounter
--- OUTSIDE RECORDS SUMMARY | 2025-06-08 10:04 | XMS_ITS | Clinical Summary ---
Author Organization [facility] Address [address] [facility] [place] [address] Care Team Providers Care Protective Services Officer Name Role Phone Navjot Stewart DO Primary Care Provider [phone] Allergies No known active allergies Medications atenolol (Tenormin) 100 MG tablet Take 100 mg by mouth Daily 4 Active valACYclovir (Valtrex) 500 MG tablet Take 500 mg by mouth Daily Active metFORMIN XR (Glucophage-XR ) 500 MG 24 hr tabletIndicati ons:Insulin resistance Take 1 tablet by mouth in the evening with a meal. Do not crush, chew, or split. 30 tablet 3 5 05/25/20 25 Discontinued Encounters Date Type Department Care Team Description 05/31/2025 Orders Only [facility] D[facility] [address] [place] [address] Alisa Walker MA 05/25/2025 10:00 AM EDT Office Visit [facility] [address] [place] [address] Giselle Tan PA Well woman exam with routine gynecological exam; Breast cancer screening by mammogram 05/25/2025 Clinisync Result Encounter [facility]OMS External Department Unsolicited Giselle Tan PA 05/25/2025 Bamboo flowsheet [facility] [address] [place] [address] Giselle Tan PA 04/14/2025 Refill [facility] [address] [place] [address] Santi Mcconnell DO Insulin resistance from Last [...] AM EDT Office Visit [facility] DEE [address] [facility] [place] [address] Giselle Tan PA [address] [facility] [place] [address] Procedures Procedure Name Priority Date/Time Associated Diagnosis Comments IGP,APTIMA HPV,AGE GDLN Routine 05/25/2025 9:35 AM EDT PAP SMEAR Routine 05/25/2025 12:00 AM EDT from Last 3 Months Results * IGP,APTIMA HPV,AGE GDLN (05/25/2025 9:35 AM EDT) AGE GDLN ACOG TESTING Note . [facility] Comment: TESTS RESULT FLAG UNITS REF RANGE LAB Clinician Provided Cytology Information Source.............Cervix;Endocervix No. of containers..01 ThinPrep Vial Age Dacia LEONARD Sangita... 30 FLAG LEGEND: L-Low Normal,H-High Normal,LL-Alert Low,HH-Alert High <-Panic Low,>-Panic High,A-Abnormal,AA-Critical Abnormal Performed at: 01 [facility] [address] [place] [address] Jen Tong MD, IGP, APTIMA HPV, RFX 16/18,45 Note . [facility] Comment: TESTS RESULT FLAG UNITS REF RANGE LAB DIAGNOSIS: 02 NEGATIVE FOR INTRAEPITHELIAL LESION OR MALIGNANCY. Specimen adequacy: 02 Satisfactory for evaluation. No endocervical component is identified. Performed by: 02 Caren Murray Cloth Winder . 02 Note: Note 02 The Pap smear is a screening test designed to aid in the detection of premalignant and malignant conditions of the uterine cervix. It is not a diagnostic procedure and should not be used as the sole means of detecting cervical cancer. Both false-positive and false-negative reports do occur. Test Methodology: Note 02 This liquid based ThinPrep(R) pap test was screened with the use of an image guided system. HPV Genotype Reflex Note 02 Criteria not met, HPV Genotype not performed. FLAG LEGEND: L-Low Normal,H-High Normal,LL-Alert Low,HH-Alert High <-Panic Low,>-Panic High,A-Abnormal,AA-Critical Abnormal Performed at: [address] [address] Jen Tong MD, HPV APTIMA Negative Negative [facility] Comment: This nucleic acid amplification test detects fourteen high- risk HPV types (16,18,31,33,35,39,45,51,52,56,58,59,66,68) without differentiation. Performed at: =[address] [id number] [place] Office: Jen Tong MD, Phone: [phone] Performed at: [address] [id number] [place] Office: Jen Tong MD, Phone: [phone] 05/25/2025 9:35 AM EDT 05/25/2025 3:44 PM EDT Narrative [facility] - 05/28/2025 10:16 AM EDT BRUSH-SPATULA CERVIX ENDOCERVIX us G[facility]elle [facility] BLOOD ORDERABLES Final Resul t [facility] * Pap Smear (05/25/2025 12:00 AM EDT) Swab Cervical swab / Unknown us G[facility] CYTOLOGY ORDERABLES Final Re sult EXTERNAL LAB from Last 3 Months Insurance [facility] Care Teams Protective Services Officer Relationship Specialty Start Date End Date Navjot Stewart DO [address] [place] [address] PCP - General Internal Medicine 05/04/24
--- OUTSIDE RECORDS SUMMARY | 2025-06-08 10:04 | XMS_ITS | Encounter Summary ---
Author Organization [facility] Address [address] [facility] [place] [address] Care Team Providers Care Manager Food Name Role Phone Navjot Stewart DO Primary Care Provider Encounter Details Date Type Department Care Team (Late Contact Info) Description 04/21/2024 Clinisync Result Encounter NOMS External Department Unsolicited German Mcconnell DO [address] [facility] [address] Keshawn Grya, [facility]11 Social History Tobacco Use Types Packs/Day [...] EDT Office Visit [facility] [address] [facility] [place] [phone] Giselle Tan PA [address] [facility] [address] [place], [place] [address] documented as of this encounter Procedures Procedure Name Priority Date/Time Associated Diagnosis Comments US PELVIS TRANSVAGINAL 04/21/2024 10:57 AM EDT documented in this encounter Results * US PELVIS TRANSVAGINAL (04/21/2024 10:57 AM EDT) Anatomical Region Laterality Modality Other 04/21/2024 10:5 7 AM EDT Narrative 04/21/2024 11:00 AM EDT [address] [address] Ultrasound Report Signed Patient: VAISHALI ESCOBAR MR#: [id number] : 1985 Acct:[id number] Age/Sex: 39 / F ADM Date: 04/20/24 Loc: US Attending Dr: German Mcconnell D.O. Ordering Physician: German Mcconnell D.O. Date of Service: 04/20/24 Procedure(s): US pelvis transvaginal Accession Number(s): [id number] cc: Navjot Stewart D.O.; German Mcconnell D.O. [address] [address] Patient Name: VAISHALI ESCOBAR MRN: [id number] date: 1985 Sex: F Assigned Patient Location: US Current Patient Location: Accession/Order Number: [id number] Exam Date: 04/20/2024 09:00 Report Date: 04/21/2024 [...] Signed By: 04/21/24 1100 DD/ 1057 TD/TT: Studio Control Operator: Procedure Note Radiology, Radiologist, MD - 04/21/2024 [place] [address] Ultrasound Report Signed Patient: VAISHALI ESCOBAR DMR#: [id number] : 1985Acct:[id number] Age/Sex: 39 / FADM Date: 04/20/24 Loc: US Attending Dr: German Mcconnell D.O. Ordering Physician: German Mcconnell D.O. Date of Service: 04/20/24 Procedure(s): US pelvis transvaginal Accession Number(s): [id number] cc: Navjot Stewart D.O.; German Mcconnell D.O. [address] [address] Patient Name: VAISHALI ESCOBAR MRN: [id number] date: 1985 Sex: F Assigned Patient Location: Current Patient Location: Accession/Order Number: [id number] Exam Date: 04/20/2024 09:00 Report Date: 04/21/2024 [...] M.D. Signed By:04/21/24 1100 DD/ 1057 TD/TT: Studio Control Operator: us German Enedina DO [facility] Final Result documented in this encounter Visit Diagnoses Not on filedocumented in this encounter Care Teams Manager Food Relationship Specialty Start Date End Date Navjot Stewart DO [address] [place] [address] PCP - General Internal Medicine 05/04/24 documented as of this encounter
--- OUTSIDE RECORDS SUMMARY | 2025-06-08 10:04 | XMS_ITS | Encounter Summary ---
Author Organization [facility] Address [address] [facility] [place] [address] Care Team Providers Care Ferryboat Operator Helper Name Role Phone Navjot Stewart DO Primary Care Provider [phone] Encounter Details Date Type Department Care Team ([facility] Contact Info) Description 06/15/2024 Abstract NOM[facility]if DEE [address] [facility] [place] [address] Shasha Barber LPN [address] [place] [id number] Social History Tobacco Use Types Packs/Day Years [...] 06/22/2025 8:30 AM EDT Office Visit NOMSherif DEE [address] [facility] [place] [address] Giselle Tan PA [address] [facility] [place] [address] documented as of this encounter Visit Diagnoses Not on filedocumented in this encounter Care Teams Ferryboat Operator Helper Relationship Specialty Start Date End Date Navjot Stewart DO [address] [place] [address] PCP - General Internal Medicine 05/04/24 documented as of this encounter
--- OUTSIDE RECORDS SUMMARY | 2025-06-08 10:04 | XMS_ITS | Encounter Summary ---
Author Organization [facility] Address [address] [facility] [place] [address] Care Team Providers Care Emergency Generator Mechanic Name Role Phone Navjot Stewart DO Primary Care Provider [phone] Encounter Details Date Type Department Care Team (Late Contact Info) Description 05/25/2025 Bamboo flowsheet [facility] [address] [facility] [place] [address] Giselle Tan PA [address] [facility] [address] [place], [facility] Social History Tobacco Use Types Packs/Day [...] 06/22/2025 8:30 AM EDT Office Visit [facility] Marina DEE [address] [facility] [place] [address] Giselle Tan PA [address] [facility] [address] [place], [facility] documented as of this encounter Visit Diagnoses Not on filedocumented in this encounter Care Teams Emergency Generator Mechanic Relationship Specialty Start Date End Date Navjot Stewart DO [address] [facility] [place] [address] PCP - General Internal Medicine 05/04/24 documented as of this encounter
--- OUTSIDE RECORDS SUMMARY | 2025-06-08 10:04 | XMS_ITS | Encounter Summary ---
Author Organization [facility] Address [address] [facility] [place] [address] Care Team Providers Care Telecommunicator Name Role Phone Navjot Stewart DO Primary Care Provider [phone] Encounter Details Date Type Department Care Team (Late Contact Info) Description 05/25/2025 Clinisync Result Encounter NOMS External Department Unsolicited Giselle Tan PA [address] [place] [address] [place], [place] [phone] Social History Tobacco Use Types Packs/Day Years [...] AM EDT Office Visit YOSVANY DEE [address] [place] [address] Giselle Tan PA [address] [facility] [address] [place], [place] [address] documented as of this encounter Procedures Procedure Name Priority Date/Time Associated Diagnosis Comments IGP,APTIMA HPV,AGE GDLN Routine 05/25/2025 9:35 AM EDT documented in this encounter Results * IGP,APTIMA HPV,AGE GDLN (05/25/2025 9:35 AM EDT) AGE LN AC TESTING Note . [facility] Comment: TESTS RESULT FLAG UNITS REF RANGE LAB Clinician Provided Cytology Information Source.............Cervix;Endocervix No. of containers..01 ThinPrep Vial Age Zulayo ACOG Sangita... 30 FLAG LEGEND: L-Low Normal,H-High Normal,LL-Alert Low,HH-Alert High <-Panic Low,>-Panic High,A-Abnormal,AA-Critical Abnormal Performed at: 01 =G [facility] [address] Jen Tong MD, IGP, APTIMA HPV, RFX 16/18,45 Note . [facility] Comment: TESTS RESULT FLAG UNITS REF RANGE LAB DIAGNOSIS: 02 NEGATIVE FOR INTRAEPITHELIAL LESION OR MALIGNANCY. Specimen adequacy: 02 Satisfactory for evaluation. No endocervical component is identified. Performed by: 02 Caren Murray Wind Turbine Service Technician . 02 Note: Note 02 The Pap [...] <-Panic Low,>-Panic High,A-Abnormal,AA-Critical Abnormal Performed at: [address] [address] Jen Tong MD, HPV APTIMA Negative Negative [facility] Comment: This nucleic acid amplification test detects fourteen high- risk HPV types (16,18,31,33,35,39,45,51,52,56,58,59,66,68) without differentiation. Performed at: = - [facility] [id number] Motor Inspection Mechanic: Jen Tong MD, Phone: [phone] Performed at: [address] [id number] Motor Inspection Mechanic: Jne Tong MD, Phone: [phone] 05/25/2025 9:35 AM EDT 05/25/2025 3:44 PM EDT Narrative [facility] - 05/28/2025 10:16 AM EDT BRUSH-SPATULA CERVIX ENDOCERVIX G[facility]elle [facility] BLOOD ORDERABLES Final Resul t [facility] TB documented in this encounter Visit Diagnoses Not on filedocumented in this encounter Care Teams Telecommunicator Relationship Specialty Start Date End Date Navjot Stewart DO [address] [place] [address] PCP - General Internal Medicine 05/04/24 documented as of this encounter
[2025-06-08 10:39] LABS: Hematocrit 41.6 % (36.0-48.0); Hemoglobin 14.3 g/dL (12.0-16.0); Immature Granulocytes Abs Auto 0.04 10^3/uL (0.00-0.03); Immature Granulocytes Pct Auto 0.5 % (0.0-0.5); Lymphocytes Absolute Auto 2.1 10^3/uL (1.2-3.8); Mean Corpuscular HGB Conc 34.4 g/dL (29.9-35.2); Mean Corpuscular Hemoglobin 28.1 pg (26.7-34.0); Mean Corpuscular Volume 81.9 fL (81.0-99.0); Platelet Count 270 10^3/uL (150-450); Red Blood Count 5.08 10^6/uL (4.20-5.40); White Blood Count 8.1 10^3/uL (4.0-11.0)
[2025-06-08 10:59] LABS: Alanine Aminotransferase 21 U/L (14-59); Albumin Globulin Ratio 1.0; Albumin Level 3.6 g/dL (3.4-5.0); Alkaline Phosphatase 89 U/L (46-116); Anion Gap 11.2; Aspartate Amino Transferase 13 U/L (15-37); Blood Urea Nitrogen 17.0 mg/dL (7.0-18.0); Calcium 8.8 mg/dL (8.5-10.1); Carbon Dioxide 24.8 mmol/L (21.0-32.0); Chloride 107 mmol/L (98-107); Cholesterol 162 mg/dL (<=200); Estimated GFR (African America >60 (>=60 mL/min/1.73m^2); Estimated GFR (Non-African Ame >60 (>=60 mL/min/1.73m^2); Globulin 3.5 g/dL; Glucose 106 mg/dL (74-106); HDL Cholesterol 52 mg/dL (40-60); Potassium 4.0 mmol/L (3.5-5.1); Sodium 139 mmol/L (136-145); Thyroid Stimulating Hormone 1.076 uIU/mL (0.358-3.740); Total Protein 7.1 g/dL (6.4-8.2); Triglycerides 63 mg/dL (<=150); VLDL CHOLESTEROL 12.6 mg/dL
== END 2025-06-08 10:02 | disposition home or self-care (01) ==
LOC: MAMMO 10:02
PROVIDERS: PCP Internal Medicine; Visit Provider Physician Assistant
DX: Z00.00 Encounter for general adult medical examination without abnormal findings (principal); Z12.31 Encounter for screening mammogram for malignant neoplasm of breast; Z80.3 Family history of malignant neoplasm of breast; R92.8 Other abnormal and inconclusive findings on diagnostic imaging of breast
CPT/HCPCS: 36415; 77063; 77067; 80053; 80061; 84443; 85025